=== PATIENT | female | born 1975 | race Caucasian/White ===

== ENCOUNTER 2017-04-08 07:35 | Outpatient (CLI) | payer OTHER ==
--- NOTE | 2017-04-08 10:19 | MRI ---
EXAM: BRAIN MRI WITH AND WITHOUT CONTRAST: COMPARISON: 05/31/16. HISTORY: Elapsing and remitting multiple sclerosis. TECHNIQUE: Brain MRI is performed with and without intravenous Gadolinium administration. Multisequential, mult iplanar imaging is performed. FINDINGS: No hemorrhage on the axial gradient echo sequence. No parenchymal mass, mass effect, or midline shift. Brain volume, age appropriate. Cortical colón-white matter differentiation is preserved. Ventricles and sulci are patent and symmetric. Central arterial flow voids are maintained. Absent restricted diffusion. Stable T2 and FLAIR white matter hyperintensities. Adequate aeration of the sinuses and mastoid air cells. No pathologic enhancement of the brain parenchyma. Incidental asymmetric prominence and associated enhancement of the right inferior and middle turbinat es. Correlate for possible infection/inflammation. Nonemergent direct visualization if clinically w arranted. IMPRESSION: 1. Stable white matter hyperintensities. No evidence of associated restricted diffusion or enhancem ent to suggest active demyelination. 2. Asymmetric enhancement and prominence of the right nasal cavity as above. POS: [facility]
--- NOTE | 2017-04-08 10:37 | MRI ---
CERVICAL SPINE MRI WITH AND WITHOUT CONTRAST: Date: 04-08-17 Comparison: 03-27-16 History: Multiple sclerosis. Technique: Multiplanar, multisequence MR imaging of the cervical spine is provided with and without c ontrast. FINDINGS: Mild mucosal thickening involving bilateral maxillary sinuses. There is no focal area of signal abnormality on the STIR imaging to suggest focal osseous marrow robbie ma. No anterolisthesis or retrolisthesis is seen within the cervical spine. There is no prevertebral soft tissue abnormality seen. The axial T2 weighted imaging is somewhat limited on the basis of patient motion artifact. C2-3: Intervertebral disc height and signal intensity is within normal limits. No significant central canal or neural foraminal stenosis. C3-4: There is disc desiccation, mild disc space narrowing and mild disc bulge. No associated central canal stenosis. Small left foraminal/left paracentral disc protrusion noted with mild left neural fo raminal stenosis. No significant central canal or right neural foraminal stenosis. C4-5: Minimal disc bulge with no central canal or neural foraminal stenosis. C5-6: Minimal disc bulge. No significant central canal or neural foraminal stenosis. C6-7: Mild disc bulge with no central canal stenosis. No significant neural foraminal stenosis. C7-T1: No central canal or neural foraminal stenosis. There is no focal area of signal abnormality identified within the cervical cord on the T2 weighted i maging. The post contrast imaging demonstrates no abnormal enhancement involving the imaged osseous structure s, the intervertebral disc, or the contents of the thecal sac. IMPRESSION: 1. Degenerative change within the cervical spine. 2. No cord signal abnormality to suggest active demyelination within the cervical cord. POS: [facility]
== END 2017-04-08 07:36 | disposition home or self-care (01) ==
LOC: MRI 07:35
PROVIDERS: ATTEND Psychiatry & Neurology Neurology
DX: G35 Multiple sclerosis (principal); M47.812 Spondylosis without myelopathy or radiculopathy, cervical region
CPT/HCPCS: 70553; 72156

== ENCOUNTER 2017-06-03 12:10 | Outpatient (CLI) | payer OTHER | END 2017-06-03 12:11 | disposition home or self-care (01) | LOC: BICRAD 12:10 | PROVIDERS: ATTEND Internal Medicine Gastroenterology | DX: K59.00 Constipation, unspecified (principal); R10.9 Unspecified abdominal pain | CPT/HCPCS: 74019 ==

== ENCOUNTER 2017-07-13 07:06 | Outpatient (CLI) | payer OTHER ==
--- NOTE | 2017-07-13 15:05 | NM ---
GASTRIC EMPTYING STUDY: TECHNIQUE: The patient was given 2 mCi of Technetium sulfur colloid in eggs for oral emptying phase study. INDICATIONS: Abdominal distention. Abdominal pain. One hour: 27% emptying. Two hours: 55% emptying. Four hours: 88% emptying. T-1/2 at 4 hours: 106 minutes. POS: [facility]
== END 2017-07-13 07:07 | disposition home or self-care (01) ==
LOC: NM 07:06
PROVIDERS: ATTEND Internal Medicine Gastroenterology
DX: K59.00 Constipation, unspecified (principal); R10.10 Upper abdominal pain, unspecified; R14.0 Abdominal distension (gaseous)
CPT/HCPCS: 78264; A9541

== ENCOUNTER 2017-08-05 16:38 | Emergency (ER) | payer OTHER ==
[2017-08-05] MEDS ORDERED: Nitroglycerin 2% Ointment 1 INCH/1 GM Packet ONE (17:01)
[2017-08-05 17:05] LABS: #Eosinphils 0.4 thou/uL (0.0-0.7); #Lymphocytes 2.3 thou/uL (1.20-3.40); #Monocytes 0.6 thou/uL (0.11-0.59); #Neutrophils 5.8 thou/uL (1.40-6.50); %Basophils 0.5 % (0.0-1.0); %Lymphocytes 25.5 % (21.0-51.0); %Monocytes 6.7 % (0.0-10.0); %Neutrophils 63.5 % (42.0-75.0); Hemoglobin 13.3 g/dL (12.0-16.0); Mean Corpuscular HGB CONC 33.3 g/dL (32.0-36.0); Mean Corpuscular Hemoglobin 31.5 pg (27.0-31.0); Mean Corpuscular Volume 94.6 fl (81.0-99.0); Mean Platelet Volume 6.5 fL (7.4-10.4); Platelet Count 397 thou/uL (130-400); RBC Distribution Width 11.8 % (11.5-14.5); Red Blood Cell (RBC) Count 4.21 mill/uL (4.20-5.40); White Blood Cell (WBC) Count 9.1 thou/uL (4.8-10.8)
[2017-08-05 17:11] LABS: PTT 30.6 SEC (22.9-36.1); Prothrombin Time 13.2 SEC (12.0-14.7)
[2017-08-05 17:26] LABS: ALT (SGPT) 20 U/L (8-55); AST (SGOT) 27 U/L (5-34); Albumin 4.3 g/dL (3.5-5.0); Alkaline Phosphatase 111 U/L (40-150); Anion Gap 17 mmol/L (10-20); BUN (Urea Nitrogen) 10 mg/dL (7.0-18.7); Bilirubin, Total 0.5 mg/dL (0.2-1.2); CK (CPK) 109 U/L (29-168); Calc. Creatinine Clearance 0 mL/min (70-130); Calcium 9.6 mg/dL (7.8-10.44); Carbon Dioxide 22 mmol/L (22-29); Chloride 103 mmol/L (98-107); Estimated GFR-MDRD Greater than 90; Globulin 3.3 g/dL (2.4-3.5); Glucose 139 mg/dL (70-105); Protein, Total 7.6 g/dL (6.0-8.3); Sodium 138 mmol/L (136-145)
[2017-08-05 17:34] LABS: Troponin I Less than 0.010 ng/mL (< 0.028)
--- NOTE | 2017-08-05 18:51 | RAD ---
RADIOGRAPH CHEST 1 VIEW: 08/05/17 HISTORY: 42-year-old female with acute chest pain and tachycardia. FINDINGS: There are no air space densities, pulmonary edema, pneumothorax, or cardiomegaly. The lateral costop hrenic angles are sharp. IMPRESSION: No acute cardiopulmonary findings. [place] [] POS: [facility]
[2017-08-05] MEDS ORDERED: HYDROcodone/Acetaminophen 5/325 mg Tablet ONE (19:46)
== END 2017-08-05 21:20 | disposition home or self-care (01) ==
LOC: ERS 16:38
DX: R07.9 Chest pain, unspecified (principal); E78.5 Hyperlipidemia, unspecified; G47.30 Sleep apnea, unspecified; G43.909 Migraine, unspecified, not intractable, without status migrainosus; E11.9 Type 2 diabetes mellitus without complications; K21.9 Gastro-esophageal reflux disease without esophagitis; J45.909 Unspecified asthma, uncomplicated; F41.9 Anxiety disorder, unspecified; F32.9 Major depressive disorder, single episode, unspecified; Z79.899 Other long term (current) drug therapy; Z79.84 Long term (current) use of oral hypoglycemic drugs
CPT/HCPCS: 36415; 71045; 80053; 82550; 82553; 84484; 85025; 85610; 85730; 93005

== ENCOUNTER 2017-12-02 09:28 | Outpatient (CLI) | payer OTHER ==
--- NOTE | 2017-12-02 16:11 | MRI ---
MRI OF THE RIGHT WRIST 12/02/17 PROVIDED CLINICAL HISTORY: Right wrist pain. FINDINGS: The dorsal extensor and volar flexor tendons demonstrate an intact MR appearance. Regional marrow and muscular signal appear normal. There is greater than physiologic fluid present wi thin the distal radioulnar joint. The amounts of fluid within the radiocarpal and mid carpal joints a ppear physiologic. No regional joint effusion is evident. Evaluation of the intrinsic wrist ligaments and TFC complexes limited in the absence of intra-articul ar contrast and given the degree of patient motion on the coronal fluid sensitive sequence. However, no normal appearing TFC articular disc is seen overlying the radial aspects of the ulna, compatible w ith maceration or large central tear. The dorsal and volar radioulnar ligaments appear intact. No donna ss evidence for scapholunate or lunotriquetral ligamentous tear. Alignment appears anatomic. The courses of regional major neurovascular structures appear unremarkabl e. IMPRESSION: Findings compatible with maceration/large central perforation involving the radial aspects of the TFC disc. Associated greater than physiologic distal radial ulnar joint fluid. POS: [facility]
== END 2017-12-02 09:29 | disposition home or self-care (01) ==
LOC: SCSMRI 09:28
PROVIDERS: ATTEND Orthopaedic Surgery Hand Surgery
DX: S63.591A Other specified sprain of right wrist, initial encounter (principal)

== ENCOUNTER 2017-12-28 10:06 | Outpatient (CLI) | payer OTHER ==
[2017-12-28 11:20] LABS: #Basophils 0.1 thou/uL (0.0-0.2); #Eosinphils 0.3 thou/uL (0.0-0.7); #Monocytes 0.6 thou/uL (0.11-0.59); #Neutrophils 4.8 thou/uL (1.40-6.50); %Eosinophils 4.1 % (0.0-10.0); %Lymphocytes 25.6 % (21.0-51.0); %Monocytes 7.5 % (0.0-10.0); %Neutrophils 61.9 % (42.0-75.0); Hemoglobin 13.7 g/dL (12.0-16.0); Mean Corpuscular HGB CONC 33.6 g/dL (32.0-36.0); Mean Corpuscular Hemoglobin 32.4 pg (27.0-31.0); Mean Corpuscular Volume 96.3 fL (78.0-98.0); Mean Platelet Volume 6.6 fL (7.4-10.4); Platelet Count 360 thou/uL (130-400); RBC Distribution Width 12.2 % (11.5-14.5); Red Blood Cell (RBC) Count 4.25 mill/uL (4.20-5.40); White Blood Cell (WBC) Count 7.7 thou/uL (4.8-10.8)
[2017-12-28 11:39] LABS: Anion Gap 12 mmol/L (10-20); BUN (Urea Nitrogen) 12 mg/dL (7.0-18.7); Calc. Creatinine Clearance 0 mL/min (70-130); Calcium 9.6 mg/dL (7.8-10.44); Carbon Dioxide 24 mmol/L (22-29); Chloride 102 mmol/L (98-107); Estimated GFR-MDRD 82; Glucose 122 mg/dL (70-105); Potassium 4.3 mmol/L (3.5-5.1); Sodium 134 mmol/L (136-145)
== END 2017-12-28 10:07 | disposition home or self-care (01) ==
LOC: LABBT 10:06
PROVIDERS: ATTEND Orthopaedic Surgery Hand Surgery
DX: Z01.812 Encounter for preprocedural laboratory examination (principal); S54.21XA Injury of radial nerve at forearm level, right arm, initial encounter
CPT/HCPCS: 80048; 85025

== ENCOUNTER 2018-01-01 08:50 | Day surgery (SDC) | payer OTHER ==
[2017-12-28 10:24] VITALS: BMI 32.1
[2018-01-01] MEDS ORDERED: Ropivacaine 0.2% HCl/PF 20 ML ONE (09:39)
[2018-01-01] MEDS ORDERED: Midazolam HCl 2 mg/2 ml Vial ONE ×2 (09:39→17:28)
[2018-01-01] MEDS ORDERED: Fentanyl 100 MCG/2 ML VIAL ONE ×2 (09:39→15:15)
[2018-01-01] MEDS ORDERED: Fentanyl 100 MCG/2 ML VIAL IV PRN (10:14)
[2018-01-01] MEDS ORDERED: Ropivacaine HCl/PF 1,100 MG in Sodium Chloride 0.9% 440 ML NERVE BLCK SCH (10:14)
[2018-01-01] MEDS ORDERED: Zolpidem Tartrate 5 MG TAB PO PRN (10:14)
[2018-01-01] MEDS ORDERED: Ondansetron HCl/PF 4 MG/2 ML Vial IVP PRN (10:14)
[2018-01-01] MEDS ORDERED: traMADol HCl 50 MG TAB PO PRN ×2 (10:14)
[2018-01-01] MEDS ORDERED: HYDROcodone/Acetaminophen 5/325 mg Tablet PO PRN ×2 (10:14)
[2018-01-01] MEDS ORDERED: Promethazine HCl 25 MG/ML VIAL IM PRN (10:14)
[2018-01-01] MEDS ORDERED: HYDROcodone/Acetaminophen 5/325 mg Tablet ONE (12:46)
[2018-01-01] MEDS ORDERED: Ropivacaine 0.5% HCl/PF (150 MG/30 ML VIAL) ONE (13:12)
[2018-01-01] MEDS ORDERED: PROPOFOL 200 MG/20 ML VIAL ONE (13:23)
[2018-01-01] MEDS ORDERED: Ondansetron HCl/PF 4 MG/2 ML Vial ONE (13:23)
[2018-01-01] MEDS ORDERED: Lidocaine 1% PF 5 ML VIAL ONE (13:23)
[2018-01-01] MEDS ORDERED: Glycopyrrolate 0.2 MG/ML 5 ML SYRINGE ONE (13:23)
[2018-01-01] MEDS ORDERED: Dexamethasone 20 MG/5 ML VIAL ONE (13:23)
[2018-01-01] MEDS ORDERED: Labetalol 100 MG/20 ML MDV ONE (13:23)
[2018-01-01] MEDS ORDERED: Sodium Chloride 0.9% 0 ML ONE (15:07)
[2018-01-01] MEDS ORDERED: Bupivacaine PF 0.5% 30 ML VIAL ONE (15:07)
[2018-01-01] MEDS ORDERED: Bacitracin Zinc Ointment 30 gm TUBE ONE (15:07)
[2018-01-01] MEDS ORDERED: Betamet Acet/Betamet Na Ph 30 MG/5 ML VIAL ONE (15:07)
[2018-01-01] MEDS ORDERED: Clindamycin/D5W 600 mg/50 ml Premix Bag ONE (15:21)
[2018-01-01] MEDS ORDERED: Bupivacaine 0.25% HCL 30 ML VIAL ONE (17:11)
[2018-01-01] MEDS ORDERED: Ketorolac Tromethamine 30 MG/ML VIAL ONE (17:22)
--- NOTE | 2018-01-04 13:09 | OP ---
DATE OF PROCEDURE: 01/01/2018 PREOPERATIVE DIAGNOSIS: Superficial radial nerve compression at two sites, one proximal under brachi gautam and two at the intersection site first and second dorsal compartment. PROCEDURE PERFORMED: 1. Superficial radial nerve release separate incision forearm underneath the brachioradialis with br achioradialis tenotomy. 2. Superficial radial nerve release at the wrist with second dorsal compartment release. TOURNIQUET TIME: 22 minutes. FINDINGS: Compression of the brachioradialis greater than that at the second dorsal compartment. INDICATION: Failed conservative treatment except for 7 to 10-day relief with injections. DESCRIPTION OF PROCEDURE: After successful general endotracheal anesthesia, the limb was prepped and draped. The patient had the limb exsanguinated, tourniquet inflated to 250 mmHg pressure. The adin ent had first a jennifer-incisional blocks with two incision outlined, both zigzag, one in the brachiorad ialis interval with the extensor and the second at the second dorsal compartment site. Incision was first made from the base of the first dorsal compartment towards the second dorsal compartment in zig zag fashion. We lifted up the area and identified the superficial radial nerves. No compression. T he first dorsal compartment with minimal amount of fascial compression between the skin and the secon d dorsal compartment and over the second dorsal compartment as well. We irrigated the area. Then, w e identified the line of the nerve, made a proximal incision over the brachial radialis palpate in th e brachial radialis interval with the common extensors and followed this back until we found the supe rficial radial nerve, emerging out from under the brachioradialis. We then performed a tenotomy, rel eased the fascial bands including resecting a 4 mm wide x 3 cm long area of the brachioradialis tendo n to take pressure off the nerve here. It was flattened by about 50% with mild stiffness. We placed Celestone and decided 3 mL, gently closed on the subcutaneous tissue after releasing the tourniquet and obtained hemostasis. The patient left the operating room with soft dressing, digits pink with no evidence of anesthetic or operative complication.
== END 2018-01-01 19:15 | disposition home or self-care (01) ==
LOC: SDC 08:50
PROVIDERS: ATTEND Orthopaedic Surgery Hand Surgery
PROC: 01N60ZZ Release Radial Nerve, Open Approach (ICD-10-PCS; principal; 2018-01-01)
DX: G56.31 Lesion of radial nerve, right upper limb (principal); F32.9 Major depressive disorder, single episode, unspecified; F41.9 Anxiety disorder, unspecified; J45.909 Unspecified asthma, uncomplicated; E11.9 Type 2 diabetes mellitus without complications; E78.00 Pure hypercholesterolemia, unspecified; G35 Multiple sclerosis; K21.9 Gastro-esophageal reflux disease without esophagitis; Z87.891 Personal history of nicotine dependence; Z79.84 Long term (current) use of oral hypoglycemic drugs; Z79.899 Other long term (current) drug therapy; Z88.0 Allergy status to penicillin; Z88.1 Allergy status to other antibiotic agents; Z88.5 Allergy status to narcotic agent; Z88.8 Allergy status to other drugs, medicaments and biological substances; Z91.011 Allergy to milk products; Z91.048 Other nonmedicinal substance allergy status
CPT/HCPCS: 96374; A4216; J0702; J1100; J1885; J2001; J2250; J2405; J2704; J2795; J3010; J3490; J7050; S0020

== ENCOUNTER 2018-02-18 11:58 | Outpatient (CLI) | payer OTHER ==
[2018-02-18 14:22] LABS: Hemoglobin 12.1 g/dL (12.0-16.0); Mean Corpuscular HGB CONC 33.7 g/dL (32.0-36.0); Mean Corpuscular Hemoglobin 32.7 pg (27.0-31.0); Mean Corpuscular Volume 97.2 fL (78.0-98.0); Mean Platelet Volume 7.2 fL (7.4-10.4); Platelet Count 314 thou/uL (130-400); RBC Distribution Width 11.5 % (11.5-14.5); Red Blood Cell (RBC) Count 3.68 mill/uL (4.20-5.40)
[2018-02-18 14:27] LABS: INR-International Normal Ratio 0.9; PTT 27.1 SEC (22.9-36.1); Prothrombin Time 12.6 SEC (12.0-14.7)
[2018-02-18 14:45] LABS: Anion Gap 13 mmol/L (10-20); BUN (Urea Nitrogen) 12 mg/dL (7.0-18.7); Calc. Creatinine Clearance 0 mL/min (70-130); Calcium 9.4 mg/dL (7.8-10.44); Carbon Dioxide 23 mmol/L (22-29); Chloride 105 mmol/L (98-107); Estimated GFR-MDRD Greater than 90; Glucose 112 mg/dL (70-105); Potassium 3.8 mmol/L (3.5-5.1); Sodium 137 mmol/L (136-145)
--- NOTE | 2018-02-21 20:55 | EKG ---
Test Reason : Blood Pressure : / mmHG Vent. Rate : 082 BPM Atrial Rate : 082 BPM P-R Int : 124 ms QRS Dur : 084 ms QT Int : 354 ms P-R-T Axes : 066 063 086 degrees QTc Int : 413 ms Poor data quality, interpretation may be adversely affected Normal sinus rhythm Nonspecific ST and T wave abnormality Abnormal ECG When compared with ECG of 05-AUG-2017 16:44, Nonspecific T wave abnormality, improved in Inferior leads Confirmed by Herman TELLEZ ([id number]) on 02/21/2018 8:55:17 PM Referred By: KARLA Confirmed By:Herman TELLEZ
== END 2018-02-18 11:59 | disposition home or self-care (01) ==
LOC: LABBT 11:58
PROVIDERS: ATTEND Specialist
DX: Z01.818 Encounter for other preprocedural examination (principal); R00.0 Tachycardia, unspecified
CPT/HCPCS: 80048; 85027; 85610; 85730; 93005; 93010

== ENCOUNTER 2018-02-22 05:47 | Day surgery (SDC) | payer OTHER ==
[2018-02-18 12:16] VITALS: BMI 32.8
[2018-02-22] MEDS ORDERED: Lidocaine 1% (PF) 30 ML VIAL ONE (07:07)
[2018-02-22] MEDS ORDERED: Heparin 10,000 UNITS/1 ML VIAL ONE (07:28)
[2018-02-22] MEDS ORDERED: SUGAMMADEX SODIUM 200 MG/2 ML VIAL ONE (07:31)
[2018-02-22] MEDS ORDERED: SUGAMMADEX SODIUM 500 MG/5 ML VIAL ONE (07:31)
[2018-02-22] MEDS ORDERED: Propofol 500 MG/50 ML VIAL ONE ×2 (07:33→08:52)
[2018-02-22] MEDS ORDERED: Midazolam HCl 2 mg/2 ml Vial ONE (07:34)
[2018-02-22] MEDS ORDERED: Isoproterenol 0.2 MG/1 ML AMP ONE (08:58)
--- NOTE | 2018-02-22 10:13 | OP ---
DATE OF PROCEDURE: 02/22/2018 PROCEDURE: Comprehensive EP study with induction attempt. PREOPERATIVE DIAGNOSIS: Palpitations. PROCEDURE DETAILS: The patient came to the EP lab in the postabsorptive state. Informed consent was obtained. A timeout was called. The patient was sedated by a member of the Anesthesia staff. Once the patient was adequately sedated, the left and right femoral regions were prepped and draped in th e usual sterile fashion. Using a modified Seldinger technique and with ultrasound guidance, access w as obtained x3 in the right femoral vein. Three 6 Montserratian sheaths were advanced through these sheaths , quadripolar catheter was placed in the high right atrium, an octapolar catheter was placed along th e His bundle and a quadripolar catheter was placed in the right ventricle. Baseline intervals were as follows. Cycle length was 568, NV intervals 123. QRS was 69, QT 340, AH 46 and HV 40. AV Wenckebach occurred at 280 milliseconds. VA conduction was present and was decreme ntal. VA Wenckebach occurred at 310 milliseconds. VERP occurred at [address] cycle length at a pauline ature of 190 milliseconds. VA ERP was less than 450 drive at 190 milliseconds premature. AV node AE RP occurred at 500 milliseconds and 220 premature, AV node ERP occurred at less than 500 milliseconds at 2:20 premature no jump was noted. VA conduction appeared to be concentric due to a retrograde Hi s noted. After baseline EP study a bolus of isoproterenol was given. Heart rate accelerated and pre mature beats, as well as drive pacing down to approximately 200 milliseconds was delivered. No supra ventricular tachycardias could be induced whatsoever. Based on this, the patient was awoken, cathete rs were removed and hemostasis was obtained with manual pressure. CONCLUSIONS: 1. EP study negative for supraventricular tachycardia. 2. Normal AV VA intervals and normal conduction system. RECOMMENDATIONS: The patient will continue current medications, will follow up with Dr. Borden.
[2018-02-22] MEDS ORDERED: Lidocaine 1% PF 5 ML VIAL ONE (10:36)
[2018-02-22] MEDS ORDERED: PROPOFOL 200 MG/20 ML VIAL ONE (10:36)
[2018-02-22] MEDS ORDERED: Fentanyl 100 MCG/2 ML VIAL ONE (11:30)
== END 2018-02-22 14:03 | disposition home or self-care (01) ==
LOC: CCL 05:47
PROVIDERS: ATTEND Specialist
PROC: 4A023FZ Measurement of Cardiac Rhythm, Percutaneous Approach (ICD-10-PCS; principal; 2018-02-22)
PROC: 4A0234Z Measurement of Cardiac Electrical Activity, Percutaneous Approach (ICD-10-PCS; principal; 2018-02-22)
DX: R00.0 Tachycardia, unspecified (principal); G35 Multiple sclerosis; Z88.5 Allergy status to narcotic agent; Z88.0 Allergy status to penicillin; Z88.6 Allergy status to analgesic agent; Z79.899 Other long term (current) drug therapy
CPT/HCPCS: 36416; 76942; 93621; 93623; 96374; C1730; C1769; J1644; J2001; J2250; J2704; J3010

== ENCOUNTER 2018-04-12 10:16 | Outpatient (CLI) | payer OTHER ==
--- NOTE | 2018-04-12 12:28 | RAD ---
KUB: HISTORY: Chronic constipation. FINDINGS: The bowel gas pattern is nonobstructed with a mild amount of stool throughout the colon. Postop chol ecystectomy changes are seen. There are some mild arthritic changes of both hips. IMPRESSION: No acute findings. POS: [facility]
== END 2018-04-12 10:17 | disposition home or self-care (01) ==
LOC: BICRAD 10:16
PROVIDERS: ATTEND Physician Assistant Medical
DX: K59.09 Other constipation (principal)
CPT/HCPCS: 74018

== ENCOUNTER 2018-04-12 11:05 | Emergency (ER) | payer OTHER ==
[2018-04-12] MEDS ORDERED: Acetaminophen 500 MG TAB ONE (11:23)
--- NOTE | 2018-04-12 11:50 | RAD ---
LEFT ANKLE THREE VIEWS: History: Pain. Twisting injury. Comparison: 01-15-17 FINDINGS: Joint spaces are preserved. No fracture. No cortical irregularity or periosteal reaction. No signific ant soft tissue swelling. IMPRESSION: No post-traumatic change. POS: [facility]
== END 2018-04-12 12:10 | disposition home or self-care (01) ==
LOC: ERS 11:05
DX: S93.402A Sprain of unspecified ligament of left ankle, initial encounter (principal); E11.9 Type 2 diabetes mellitus without complications; K21.9 Gastro-esophageal reflux disease without esophagitis; G40.909 Epilepsy, unspecified, not intractable, without status epilepticus; G43.909 Migraine, unspecified, not intractable, without status migrainosus; G47.30 Sleep apnea, unspecified; F41.9 Anxiety disorder, unspecified; F32.9 Major depressive disorder, single episode, unspecified; F43.10 Post-traumatic stress disorder, unspecified; X50.1XXA Overexertion from prolonged static or awkward postures, initial encounter
CPT/HCPCS: 74018

== ENCOUNTER 2018-04-14 08:41 | Outpatient (CLI) | payer OTHER ==
--- NOTE | 2018-04-14 09:34 | RAD ---
COLONIC MOTILITY RADIOGRAPH TWO VIEWS: Indication: Day 3 Sitz marker study for history of chronic constipation. FINDINGS: Sitz markers have progressed to the confines of the distal transverse and descending colon. There are 24 radiopaque markers visualized. IMPRESSION: Passage of radiopaque colonic markers to the level of the distal transverse and descending colon. POS: [facility]
== END 2018-04-14 08:42 | disposition home or self-care (01) ==
LOC: RAD 08:41
PROVIDERS: ATTEND Physician Assistant Medical
DX: K59.09 Other constipation (principal)
CPT/HCPCS: 74018

== ENCOUNTER 2018-04-16 08:42 | Outpatient (CLI) | payer OTHER ==
--- NOTE | 2018-04-16 10:56 | RAD ---
COLONIC MOTILITY STUDY: HISTORY: Evaluation of colonic motility, constipation. FINDINGS: This is day 5 of a 6 marker study. The residual markers are now either within the descending or sigm oid colon. There are 8 markers remaining at this time. IMPRESSION: Day 5 with 8 markers remaining. This would be defined as an abnormal study. A moderate amount of st ool is noted throughout the colon. POS: [facility]
== END 2018-04-16 08:43 | disposition home or self-care (01) ==
LOC: RAD 08:42
PROVIDERS: ATTEND Physician Assistant Medical
DX: K59.09 Other constipation (principal)
CPT/HCPCS: 74018

== ENCOUNTER 2018-04-19 08:38 | Outpatient (CLI) | payer OTHER ==
--- NOTE | 2018-04-19 10:24 | RAD ---
COLONIC MOTILITY STUDY/SITZ MARKER STUDY: Comparison: 04-16-18 FINDINGS: Anterior view of the abdomen shows a nonspecific, nonobstructed bowel gas pattern. No remaining Sitz markers are seen in the abdomen. Cholecystectomy clips are present. This is day 8 of the study. IMPRESSION: No residual Sitz markers. POS: [facility]
== END 2018-04-19 08:39 | disposition home or self-care (01) ==
LOC: RAD 08:38
PROVIDERS: ATTEND Physician Assistant Medical
DX: K59.09 Other constipation (principal)
CPT/HCPCS: 74018

== ENCOUNTER 2018-04-20 16:01 | Inpatient (IN) | payer OTHER ==
[2018-04-20] MEDS ORDERED: methylPREDNISolone Sod Succ/PF 125 MG/2 ML VIAL ONE (16:12)
[2018-04-20 16:27] LABS: Lactate 5.68 mmol/L (0.50-2.20)
[2018-04-20 16:37] LABS: #Basophils 0.1 thou/uL (0.0-0.2); #Eosinphils 0.3 thou/uL (0.0-0.7); #Lymphocytes 2.5 thou/uL (1.20-3.40); #Monocytes 0.9 thou/uL (0.11-0.59); #Neutrophils 4.7 thou/uL (1.40-6.50); %Basophils 1.2 % (0.0-1.0); %Eosinophils 3.3 % (0.0-10.0); %Lymphocytes 29.9 % (21.0-51.0); %Monocytes 10.1 % (0.0-10.0); %Neutrophils 55.5 % (42.0-75.0); Hemoglobin 12.5 g/dL (12.0-16.0); Mean Corpuscular HGB CONC 33.8 g/dL (32.0-36.0); Mean Corpuscular Hemoglobin 32.3 pg (27.0-31.0); Mean Corpuscular Volume 95.6 fL (78.0-98.0); Mean Platelet Volume 7.2 fL (7.4-10.4); Platelet Count 325 thou/uL (130-400); RBC Distribution Width 11.9 % (11.5-14.5); Red Blood Cell (RBC) Count 3.88 mill/uL (4.20-5.40); White Blood Cell (WBC) Count 8.5 thou/uL (4.8-10.8)
[2018-04-20 16:38] LABS: Actual Bicarbonate (HCO3a) 20.8 mEq/L (22-28); Analyzer IN Cardio ER; Base Excess (BEa) -3.4 mEq/L (-2.0 to +3.0); CO2 Tension 34.7 mmHg (35.0-45.0); Calcium, Ionized 1.06 mmol/L (1.12-1.30); Carboxyhemoglobin (COHb) 0.3 gm% (0.0-3.0); Hemoglobin (Hb) 12.4 g/dL (12.0-16.0); O2 Tension (PaO2) 67.1 mmHg (80.0-100.0); Potassium - ABG Lab 3.05 mmol/L (3.70-5.30)
[2018-04-20 16:40] LABS: ALV-art Gradient 89.165 (0-20); Puncture Site RRA
[2018-04-20 17:02] LABS: ALT (SGPT) 25 U/L (8-55); AST (SGOT) 41 U/L (5-34); Albumin 4.2 g/dL (3.5-5.0); Alkaline Phosphatase 125 U/L (40-150); Anion Gap 19 mmol/L (10-20); BUN (Urea Nitrogen) 6 mg/dL (7.0-18.7); Bilirubin, Total 0.4 mg/dL (0.2-1.2); Calc. Creatinine Clearance 0 mL/min (70-130); Calcium 9.3 mg/dL (7.8-10.44); Carbon Dioxide 19 mmol/L (22-29); Chloride 101 mmol/L (98-107); Estimated GFR-MDRD 89; Globulin 3.5 g/dL (2.4-3.5); Glucose 133 mg/dL (70-105); Potassium 3.2 mmol/L (3.5-5.1); Protein, Total 7.7 g/dL (6.0-8.3); Sodium 136 mmol/L (136-145)
--- NOTE | 2018-04-20 17:15 | RAD ---
CHEST ONE VIEW: 04/20/18 COMPARISON: 08/05/17 HISTORY: Cough. Shortness of breath. FINDINGS: Portable upright chest demonstrates a normal cardiac silhouette. The pulmonary vessels and hilum are normal. Costophrenic angles are clear. No consolidation or mass. No pneumothorax or osseous abnormali ties. IMPRESSION: No acute cardiopulmonary process. POS: [facility]
[2018-04-20 17:52] LABS: Bilirubin Negative (Negative); Blood, Urine Negative (Negative); Clarity CLEAR (Clear); Glucose, Urine (Dipstick) Negative (Negative); Leukocyte Negative (Negative); Nitrite Negative (Negative); Protein, Urine (Dipstick) Negative (Neg-Trace); Specific Gravity, Urine 1.003 (1.002-1.036); Urobilinogen 0.2 mg/dL (0.2-1.0)
--- NOTE | 2018-04-20 19:02 | PDOC.FPRHP ---
- History of Present Illness Chief Complaint: SOB History of Present Illness: Ms. Oglesby presents to the ED for SOB today and an elevated temperature with EMS Her shortness of breath started yesterday, She has been using her home nebs with little relief. She also reports a nonproductive cough. reported fever at home as high as 101. She has a history of asthma, that is normally well controlled with pro-air. She recently started metformin for DMII. She denies nausea, vomiting, body aches, or chills. 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 no anticoagulation ED Course: elevated lactic acid. CBC, CMP, Trop, CXR: wnl steroids, 30ml/kg NS, levaquin, duonebsx3 with EMS - Allergies/Adverse Reactions Allergies Allergy/AdvReac Type Severity Reaction Status Date / Time aspirin Allergy Intermediate PASSED OUT Verified 04/20/18 22:53 codeine Allergy Intermediate VIOLENT Verified 04/20/18 22:53 BEHAVIOR Penicillins Allergy Intermediate Rash Verified 04/20/18 22:53 adhesive Allergy Verified 04/20/18 22:53 dextrose 5 % in water Allergy regalado's Verified 04/20/18 22:53 [From Zyvox] palsey linezolid [From Zyvox] Allergy regalado's Verified 04/20/18 22:53 palsey milk Allergy Verified 04/20/18 22:53 phenytoin sodium Allergy Verified 04/20/18 22:53 [From Dilantin] phenytoin sodium extended Allergy Verified 04/20/18 22:53 [From Dilantin] metronidazole [From Flagyl] AdvReac STOMACH Verified 04/20/18 22:53 UPSET promethazine HCl AdvReac UPSET Verified 04/20/18 22:53 [From Phenergan] STOMACH - Home Medications Medication Instructions Recorded Confirmed Type Linaclotide [Linzess] 290 mcg PO DAILY-AC 06/24/16 04/20/18 History Albuterol Sulfate [Proair HFA] 2 puff INH Q6HR PRN 09/05/16 04/20/18 History metFORMIN HCl [Glucophage] 1,000 mg PO BID-WM #60 tablet 09/15/16 04/20/18 Rx DULoxetine HCl [Duloxetine HCl] 120 mg PO HS 01/26/17 04/20/18 History levETIRAcetam [Keppra] 500 mg PO BID #60 tab 01/26/17 04/20/18 Rx Atenolol [Tenormin] 25 tab PO HS 12/28/17 04/20/18 History Atorvastatin Calcium [Lipitor] 80 mg PO HS 12/28/17 04/20/18 History Atenolol 50 mg PO QAM 04/20/18 04/20/18 History Fesoterodine Fumarate [Toviaz] 4 mg PO DAILY 04/20/18 04/20/18 History Ipratropium 0.06% Nasal Inhale 2 spray EA NARE TID 04/20/18 04/20/18 History [Atrovent 0.06% Nasal Inhaler] Metoprolol Succinate 50 mg PO DAILY 04/20/18 04/20/18 History Vitamin E 400 unit PO DAILY 04/20/18 04/20/18 History - History PMHx: Afib, epilepsy, MS, DMII, GERD, urge incontinence, IBS PSHx: appy, choley, CS, hysterectomy, ortho FHx:NC Social: non smoker - Review of Systems General: denies: fever/chills, weight/appetite/sleep changes Eyes: denies: vision changes ENT: denies: nasal congestion, rhinorrhea Respiratory: reports: cough. denies: congestion, shortness of breath Cardiovascular: denies: chest pain, edema Gastrointestinal: reports: diarrhea, constipation. denies: nausea, vomiting, abdominal pain Genitourinary: denies: dysuria Skin: denies: rashes, lesions Musculoskeletal: denies: pain, tenderness Neurological: denies: numbness, syncope - Vital signs BP: 126/74 HR: 124 RR: 20 Tmax: 101.8 Pox: 96% on RA Wt: 81.65kg - Physical Exam Constitutional: NAD, awake, alert and oriented HEENT: normocephalic and atraumatic, grossly normal vision, grossly normal hearing Neck: supple, trachea midline Chest: no-tender to palpation Heart: normal S1/S2, no murmurs/rubs/gallops, other (irregularly irregular, tachycardia) Lungs: no respiratory distress, good air movement, no wheezing Abdomen: soft, non-tender Musculoskeletal: normal structure, ROM grossly normal Neurological: no focal deficit Skin: no rash/lesions, good turgor Heme/Lymphatic: no unusual bruising or bleeding Psychiatric: normal mood and affect FMR H&P: Results - Labs Result Diagrams: 04/21/18 04:31 04/21/18 04:31 Lab results: WBC 8.5 thou/uL (4.8-10.8) 04/20/18 16:18 Hgb 12.5 g/dL (12.0-16.0) 04/20/18 16:18 Hct 37.1 % (36.0-47.0) 04/20/18 16:18 MCV 95.6 fL (78.0-98.0) 04/20/18 16:18 Plt Count 325 thou/uL (130-400) 04/20/18 16:18 Neutrophils % 55.5 % (42.0-75.0) 04/20/18 16:18 ABG pH 7.40 (7.35-7.45) 04/20/18 16:35 ABG pCO2 34.7 mmHg (35.0-45.0) L 04/20/18 16:35 ABG pO2 67.1 mmHg (80.0-100.0) L 04/20/18 16:35 Sodium 136 mmol/L (136-145) 04/20/18 16:18 Potassium 3.2 mmol/L (3.5-5.1) L 04/20/18 16:18 Chloride 101 mmol/L (98-107) 04/20/18 16:18 Carbon Dioxide 19 mmol/L (22-29) L 04/20/18 16:18 BUN 6 mg/dL (7.0-18.7) L 04/20/18 16:18 Creatinine 0.71 mg/dL (0.6-1.1) 04/20/18 16:18 Glucose 133 mg/dL (70-105) H 04/20/18 16:18 Lactic Acid 6.0 mmol/L (0.5-2.2) H* 04/20/18 16:18 Calcium 9.3 mg/dL (7.8-10.44) 04/20/18 16:18 Total Bilirubin 0.4 mg/dL (0.2-1.2) 04/20/18 16:18 AST 41 U/L (5-34) H 04/20/18 16:18 ALT 25 U/L (8-55) 04/20/18 16:18 Alkaline Phosphatase 125 U/L (40-150) 04/20/18 16:18 Serum Total Protein 7.7 g/dL (6.0-8.3) 04/20/18 16:18 Albumin 4.2 g/dL (3.5-5.0) 04/20/18 16:18 Urine Ketones Negative mg/dL (Negative) 04/20/18 17:29 Urine Blood Negative (Negative) 04/20/18 17:29 Urine Nitrite Negative (Negative) 04/20/18 17:29 Ur Leukocyte Esterase Negative (Negative) 04/20/18 17:29 FMR H&P: A/P - Problem List (1) Viral URI with cough Current Visit: Yes Status: Acute Code(s): J06.9 - ACUTE UPPER RESPIRATORY INFECTION, UNSPECIFIED; B97.89 - OTH VIRAL AGENTS THE CAUSE OF DISEASES CLASSD ELSWHR (2) Lactic acid increased Current Visit: Yes Status: Acute Code(s): E87.2 - ACIDOSIS (3) Asthma Current Visit: No Status: Chronic Code(s): J45.909 - UNSPECIFIED ASTHMA, UNCOMPLICATED (4) DM type 2 (diabetes mellitus, type 2) Current Visit: No Status: Chronic Qualifiers: Diabetes mellitus halfway insulin use: without halfway use Diabetes mellitus complication status: without complication Qualified Code(s): E11.9 - Type 2 diabetes mellitus without complications (5) GERD (gastroesophageal reflux disease) Current Visit: No Status: Chronic Code(s): K21.9 - GASTRO-ESOPHAGEAL REFLUX DISEASE WITHOUT ESOPHAGITIS (6) Hyperlipidemia Current Visit: No Status: Chronic Code(s): E78.5 - HYPERLIPIDEMIA, UNSPECIFIED (7) Irritable bowel syndrome Current Visit: No Status: Chronic (8) Multiple sclerosis Current Visit: No Status: Chronic Code(s): G35 - MULTIPLE SCLEROSIS (9) Seizure disorder Current Visit: Yes Status: Acute Code(s): G40.909 - EPILEPSY, UNSP, NOT INTRACTABLE, WITHOUT STATUS EPILEPTICUS - Plan Viral URI with cough - WBC wnl, elevated temperature, CXR wnl, procal pending - adequate IVF in ED, encourage PO intake - rigoberto mcgregor q6hr prn - abx not indicated at this time Asthma - hx of, exacerbating URI symptoms - PO steroids x5 days - continue home proair DMII - recently began metformin, unknown control - hold metformin Elevated LA - possibly due to metformin, hold for now - cr. wnl, no wbc elevation, pulse elevated at baseline: unlikely sepsis - repeat in AM GERD - continue home meds Epilepsy - continue home meds HLD -continue home meds MS - aware, monitor Code: full ppx: lovenox Disposition/LOS: observation on telemetry, supportive care for viral URI FMR H&P: Upper Level - Pertinent history Pt is a 43 y/o F with MS, A-fib presenting via EMS for SOB for 2 days. Associated cough, fever Tmax 100.8. She states she feels better after the Duonebs given via EMS and she denies additional complaints. No sputum production. One sick contact over the weekend with chronic bronchitis. Did receive duonebs x3 on ambulance. On RA and 97% currently without discomfort other than cough. - Pertinent findings Physical Exam: GEN: NAD, CARDIO: RRR, No MRG LUNGS: CTAB, No wheezes, rales, ronchi NEURO: Alert and oriented x4, no focal deficits, strength and sensation preserved in all extremities. MSK: No LE edema - Plan Date/Time: 04/20/181857 Andrea Morrow, have evaluated this patient and agree with findings/plan as outlined by qa intern resident. Pertinent changes/additions are listed here. Assessment/Plan: 1. Acute Asthma Exacerbation: S/p duonebs x3 via EMS. Now w/o wheezing and 97% o on RA. Did receive steroids and will continue. O2 PRN and continuous pulse ox. This is possibly 2/2 to Viral URI or Acute bronchitis as she did have a fever with onset of sx yesterday. Check procal. Consider continuing abx if elevated. CXR WNL. 2. Tachycardia: Does have a hx/o A-Fib on Metoprolol. Now likely 2/2 DEYANIRA administration. Will continue to monitor with Telemetry. No chest pain. BP initially elvated, now WNL. 3. Lactic Acidosis: Unknown cause, but she did start Metformin 1 month ago, so we will discontinue and trend Lactic acid levels. pH 7.4. No definite source of infection or evidence of tissue ischemia. 4. DM: Hold Metformin. SSI 5. Multiple Sclerosis: No acute issues 6. A-Fib: Unknown why she is not on anticoagulation, but regularly follows up with her watch supervisor in [place]. Also has a loop recorder placed. DVTPPX: LMWH, DISPO: Anticipate discharge in 1-2d Attending Addendum - Attending Addendum Date/Time: 04/21/18 [id number] I personally evaluated the patient and discussed the management with Dr. springer at time of admission last night. I agree with the History, Examination, Assessment and Plan documented above with any addition or exceptions noted below.
[2018-04-20 20:18] LABS: Lactic Acid 4.6 mmol/L (0.5-2.2)
[2018-04-20] MEDS ORDERED: Acetaminophen 325 MG TAB PO PRN (21:05)
[2018-04-20 21:09] VITALS: BMI 34.2
[2018-04-20] MEDS ORDERED: HumaLOG 300 UNITS/3 ML VIAL SC PRN (21:55)
[2018-04-20] MEDS ORDERED: Dextrose 50% Abboject 50 ML SYRINGE SLOW IVP PRN (21:55)
[2018-04-20] MEDS ORDERED: Dextrose 5% in Water 1,000 ML IV PRN (21:55)
[2018-04-20] MEDS ORDERED: PROVENTIL INHALER 6.7 G (200 INHALATIONS) INH PRN (23:58)
[2018-04-21 05:02] LABS: #Lymphocytes 0.6 thou/uL (1.20-3.40); #Monocytes 0.2 thou/uL (0.11-0.59); #Neutrophils 8.9 thou/uL (1.40-6.50); %Eosinophils 0.1 % (0.0-10.0); %Lymphocytes 6.4 % (21.0-51.0); %Neutrophils 91.5 % (42.0-75.0); Hemoglobin 12.3 g/dL (12.0-16.0); Mean Corpuscular HGB CONC 33.4 g/dL (32.0-36.0); Mean Corpuscular Hemoglobin 32.2 pg (27.0-31.0); Mean Corpuscular Volume 96.3 fL (78.0-98.0); Platelet Count 331 thou/uL (130-400); Red Blood Cell (RBC) Count 3.82 mill/uL (4.20-5.40); White Blood Cell (WBC) Count 9.7 thou/uL (4.8-10.8)
[2018-04-21 05:26] LABS: ALT (SGPT) 26 U/L (8-55); AST (SGOT) 32 U/L (5-34); Albumin 3.9 g/dL (3.5-5.0); Alkaline Phosphatase 113 U/L (40-150); Anion Gap 18 mmol/L (10-20); BUN (Urea Nitrogen) 7 mg/dL (7.0-18.7); Bilirubin, Total 0.3 mg/dL (0.2-1.2); Calc. Creatinine Clearance 124 mL/min (70-130); Calcium 9.3 mg/dL (7.8-10.44); Carbon Dioxide 18 mmol/L (22-29); Chloride 105 mmol/L (98-107); Estimated GFR-MDRD 84; Globulin 3.5 g/dL (2.4-3.5); Glucose 241 mg/dL (70-105); Potassium 4.5 mmol/L (3.5-5.1); Protein, Total 7.4 g/dL (6.0-8.3); Sodium 136 mmol/L (136-145)
[2018-04-21 05:33] LABS: Lactic Acid 4.5 mmol/L (0.5-2.2)
--- NOTE | 2018-04-21 05:50 | PDOC.FM ---
- Subjective Subjective: Pt states she did well overnight. She denies fevers or chills. She states that her breathing is improved. She denies SOB, chest pain, or nausea/vomiting. - Objective MAR Reviewed: Yes Vital Signs & Weight: Vital Signs (12 hours) Temp Pulse Resp BP BP BP Pulse Ox 04/21/18 03:55 102 H 18 122/67 95 04/21/18 00:01 97.8 F 104 H 18 142/75 H 94 L 04/20/18 20:50 98.1 F 114 H 16 133/71 92 L Weight Weight 82.146 kg Result Diagrams: 04/21/18 04:31 04/21/18 04:31 <Matthew Monte - Last Filed: 04/21/18 06:53> - Objective Vital Signs & Weight: Vital Signs (12 hours) Temp Pulse Resp BP BP Pulse Ox 04/21/18 07:05 98.8 F 101 H 16 116/67 92 L 04/21/18 03:55 102 H 18 122/67 95 04/21/18 00:01 97.8 F 104 H 18 142/75 H 94 L Weight Weight 82.146 kg Result Diagrams: 04/21/18 04:31 04/21/18 04:31 <Sunday Villalobos - Last Filed: 04/21/18 10:08> Phys Exam - Physical Examination Constitutional: NAD HEENT: moist MMs Neck: supple Good air movement, mild wheezing, no respiratory distress Cardiovascular: RRR, no significant murmur, no rub Gastrointestinal: soft, non-tender, no distention, positive bowel sounds Musculoskeletal: no edema, pulses present Neurological: moves all 4 limbs Psychiatric: normal affect, A&O x 3 Skin: cap refill <2 seconds <Matthew Monte - Last Filed: 04/21/18 06:53> Dx/Plan (1) Lactic acid increased Code(s): E87.2 - ACIDOSIS Status: Acute (2) Viral URI with cough Code(s): J06.9 - ACUTE UPPER RESPIRATORY INFECTION, UNSPECIFIED; B97.89 - OTH VIRAL AGENTS THE CAUSE OF DISEASES CLASSD ELSWHR Status: Acute (3) Asthma Code(s): J45.909 - UNSPECIFIED ASTHMA, UNCOMPLICATED Status: Chronic (4) DM type 2 (diabetes mellitus, type 2) Status: Chronic Qualifiers: Diabetes mellitus fpc insulin use: without fpc use Diabetes mellitus complication status: without complication Qualified Code(s): E11.9 - Type 2 diabetes mellitus without complications (5) GERD (gastroesophageal reflux disease) Code(s): K21.9 - GASTRO-ESOPHAGEAL REFLUX DISEASE WITHOUT ESOPHAGITIS Status: Chronic (6) Hyperlipidemia Code(s): E78.5 - HYPERLIPIDEMIA, UNSPECIFIED Status: Chronic (7) Irritable bowel syndrome Status: Chronic (8) Multiple sclerosis Code(s): G35 - MULTIPLE SCLEROSIS Status: Chronic (9) Seizure Code(s): R56.9 - UNSPECIFIED CONVULSIONS Status: Suspected - Plan Plan: This is a 43 yo female with a pmh of DM2, Asthma, HLD, IBS, and a seizure disorder Viral URI -WBC remains WNL, pt remained afebrile overnight -Pt received 30ml/kg bolus in ER, we are encouraging PO intake but will supplement with further IVFs depending on clinical presentation during her stay -tessalon pearls, we well continue her home meds and dc nebulizer treatments Asthma -Continue home meds DM2 -Pt states that she has been taking meformin for years and that a similar episode of lactic acidosis a year ago Elevated LA -We will continue metformin upon discharge -No elevated cr, or fever overnight. -We will trend once more and then likely discharge if it continues to trend down GERD -continue home meds Epilepsy -continue home meds HLD -Continue home meds MS -monitor <Matthew Monte - Last Filed: 04/21/18 06:53> Attending Addendum - Attending Addendum Date/Time: 04/21/18 0958 I personally evaluated the patient and discussed the management with Dr. Monte I agree with the History, Examination, Assessment and Plan documented above with any addition or exceptions noted below. Pt doing well this morning. Vital signs are normal with no respiratory issues. Procalcitonin is .04 and she is afebrile. Her lactic acid continues to be elevated despite IVF. Thought this is likely due to metformin use. Continue tessalon for cough and albuterol nebs PRN. Continue PO steroids for a total of 5 days. She sees Pulmonology in the OP setting <Sunday Villalobos - Last Filed: 04/21/18 10:08>
[2018-04-21] MEDS: HumaLOG 300 UNITS/3 ML VIAL SC PRN ×3 (06:12→17:01)
[2018-04-21] MEDS ORDERED: FESOTERODINE FUMARATE 4 MG PO SCH (09:00)
[2018-04-21] MEDS: predniSONE 20 MG TAB PO SCH (09:11)
[2018-04-21] MEDS: Enoxaparin Sodium 30 MG/0.3 ML SYRINGE SC SCH (09:11)
[2018-04-21] MEDS: levETIRAcetam 500 MG TAB PO SCH ×2 (09:11→20:28)
[2018-04-21] MEDS: Vitami E (Dl,Tocopheryl Acet) 400 UNITS CAP PO SCH (09:11)
[2018-04-21] MEDS: Potassium Chloride 20 MEQ TAB PO SCH ×2 (09:11→17:00)
[2018-04-21] MEDS: TROSPIUM 20 MG TABLET PO SCH ×2 (09:12→20:28)
[2018-04-21] MEDS: Ipratropium Bromide 0.06% Nasal Inhaler 15ml EA NARE SCH ×3 (09:13→21:05)
[2018-04-21] MEDS: Benzonatate 100 MG CAP PO PRN ×2 (12:10→20:28)
[2018-04-21] MEDS ORDERED: Atorvastatin Calcium 40 MG TAB PO SCH (21:00)
[2018-04-22] MEDS: Benzonatate 100 MG CAP PO PRN ×2 (02:21→09:05)
--- NOTE | 2018-04-22 05:20 | PDOC.FM ---
- Subjective Subjective: Pt states she is doing better this morning. She denies severe SOB, chest pain, or nausea/vomiting. She does state that she has been wheezing some and coughing still. Pt asked if she felt up to it, if she could go later today. - Objective MAR Reviewed: Yes Vital Signs & Weight: Vital Signs (12 hours) Temp Pulse Resp BP Pulse Ox 04/22/18 04:14 100.3 F H 106 H 24 H 114/66 89 L 04/22/18 02:15 99.0 F 04/22/18 00:53 112 H 18 89 L 04/21/18 23:16 100.2 F H 112 H 20 114/61 89 L 04/21/18 19:31 99.9 F H 111 H 17 128/81 95 04/21/18 19:29 124 H 18 95 04/21/18 18:00 99.0 F Weight Weight 82.146 kg I&O: 04/20/18 04/21/18 04/22/18 06:59 06:59 06:59 Intake Total 720 Output Total 600 Balance 120 Result Diagrams: 04/22/18 06:01 04/22/18 06:01 <Matthew Monte - Last Filed: 04/22/18 08:11> - Objective Vital Signs & Weight: Vital Signs (12 hours) Temp Pulse Resp BP Pulse Ox 04/22/18 08:03 99 18 91 L 04/22/18 07:14 98.9 F 103 H 20 126/63 93 L 04/22/18 04:14 100.3 F H 106 H 24 H 114/66 89 L 04/22/18 02:15 99.0 F 04/22/18 00:53 112 H 18 89 L 04/21/18 23:16 100.2 F H 112 H 20 114/61 89 L Weight Weight 82.146 kg I&O: 04/21/18 04/22/18 04/23/18 06:59 06:59 06:59 Intake Total 1680 Output Total 3600 Balance -1920 Result Diagrams: 04/22/18 06:01 04/22/18 06:01 <Sunday Villalobos - Last Filed: 04/22/18 10:32> Phys Exam - Physical Examination Constitutional: NAD HEENT: moist MMs Improved lung sounds, still bilateral wheezine Cardiovascular: RRR, no significant murmur Gastrointestinal: soft, non-tender, no distention, positive bowel sounds Musculoskeletal: no edema, pulses present Neurological: moves all 4 limbs Psychiatric: normal affect, A&O x 3 <Matthew Monte - Last Filed: 04/22/18 08:11> Dx/Plan (1) Lactic acid increased Code(s): E87.2 - ACIDOSIS Status: Acute (2) Viral URI with cough Code(s): J06.9 - ACUTE UPPER RESPIRATORY INFECTION, UNSPECIFIED; B97.89 - OTH VIRAL AGENTS THE CAUSE OF DISEASES CLASSD ELSWHR Status: Acute (3) Asthma Code(s): J45.909 - UNSPECIFIED ASTHMA, UNCOMPLICATED Status: Chronic (4) DM type 2 (diabetes mellitus, type 2) Status: Chronic Qualifiers: 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: 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 operator intermodal yard use Diabetes mellitus complication status: without complication Qualified Code(s): E11.9 - Type 2 diabetes mellitus without complications (5) GERD (gastroesophageal reflux disease) Code(s): K21.9 - GASTRO-ESOPHAGEAL REFLUX DISEASE WITHOUT ESOPHAGITIS Status: Chronic (6) Hyperlipidemia Code(s): E78.5 - HYPERLIPIDEMIA, UNSPECIFIED Status: Chronic (7) Irritable bowel syndrome Status: Chronic (8) Multiple sclerosis Code(s): G35 - MULTIPLE SCLEROSIS Status: Chronic (9) Seizure Code(s): R56.9 - UNSPECIFIED CONVULSIONS Status: Suspected - Plan Plan: This is a 43 yo female with a pmh of DM2, Asthma, HLD, IBS, and a seizure disorder Viral URI -pt remained afebrile overnight -Pt received 30ml/kg bolus in ER, we are encouraging PO intake but will supplement with further IVFs depending on clinical presentation during her stay -tiffany balck, we well continue her home meds -Pt's wheezing worsened from the morning yesterday and she had difficulty maintaining O2 sats of 92% and she stayed another night for treatment and observation -Repeat LA, CBC, and BMP Asthma -Continue home meds -Duonebs DM2 -Pt states that she has been taking meformin for years and that a similar episode of lactic acidosis a year ago, I cannot find a record of a similar episode in the past. Elevated LA -We will continue metformin upon discharge -No elevated cr, or fever overnight. -We will trend once more and then likely discharge if it continues to trend down GERD -continue home meds Epilepsy -continue home meds HLD -Continue home meds MS -monitor Pt may be discharged later today, pending clinical presentation. <Matthew Monte - Last Filed: 04/22/18 08:11> Attending Addendum - Attending Addendum Date/Time: 04/22/18 1027 I personally evaluated the patient and discussed the management with Dr. Monte I agree with the History, Examination, Assessment and Plan documented above with any addition or exceptions noted below. Patient improving from a respiratory standpoint today. Her O2 sats have improved and she continues to have normal morning laboratory values. Nebulizer treatments have spaced out. Lactic acid has normalized. She is requesting to go home today. <Sunday Villalobos - Last Filed: 04/22/18 10:32>
[2018-04-22 06:21] LABS: Hemoglobin 12.2 g/dL (12.0-16.0); Mean Corpuscular HGB CONC 33.3 g/dL (32.0-36.0); Mean Corpuscular Volume 96.1 fL (78.0-98.0); Mean Platelet Volume 6.7 fL (7.4-10.4); Platelet Count 325 thou/uL (130-400); White Blood Cell (WBC) Count 9.9 thou/uL (4.8-10.8)
[2018-04-22 06:38] LABS: Anion Gap 14 mmol/L (10-20); BUN (Urea Nitrogen) 11 mg/dL (7.0-18.7); Calc. Creatinine Clearance 126 mL/min (70-130); Calcium 9.2 mg/dL (7.8-10.44); Carbon Dioxide 25 mmol/L (22-29); Chloride 103 mmol/L (98-107); Estimated GFR-MDRD 85; Glucose 123 mg/dL (70-105); Potassium 4.4 mmol/L (3.5-5.1); Sodium 138 mmol/L (136-145)
[2018-04-22] MEDS: TROSPIUM 20 MG TABLET PO SCH (09:01)
[2018-04-22] MEDS: Potassium Chloride 20 MEQ TAB PO SCH (09:01)
[2018-04-22] MEDS: levETIRAcetam 500 MG TAB PO SCH (09:01)
[2018-04-22] MEDS: Vitami E (Dl,Tocopheryl Acet) 400 UNITS CAP PO SCH (09:02)
[2018-04-22] MEDS: predniSONE 20 MG TAB PO SCH (09:02)
[2018-04-22] MEDS: Enoxaparin Sodium 30 MG/0.3 ML SYRINGE SC SCH (09:04)
[2018-04-22] MEDS: Ipratropium Bromide 0.06% Nasal Inhaler 15ml EA NARE SCH (11:20)
[2018-04-22] MEDS: HumaLOG 300 UNITS/3 ML VIAL SC PRN (11:20)
[2018-04-22 11:39] VITALS: BP 135/83; TEMP 98.1
--- NOTE | 2018-04-23 15:48 | DIS ---
DATE OF ADMISSION: 04/20/2018 DATE OF DISCHARGE: 04/22/2018 ADMITTING ATTENDING: Roge Proctor MD DISCHARGE ATTENDING: Sunday Villalobos MD RESIDENT: Matthew Monte DO CONSULTS: None. PROCEDURES: Chest x-ray, one-view, no acute cardiopulmonary process. PRIMARY DIAGNOSIS: Acute hypoxic respiratory failure secondary to her upper respiratory infection/asthma exacerbation. SECONDARY DIAGNOSES: 1. Type 2 diabetes. 2. Gastroesophageal reflux disease. 3. Epilepsy. 4. Hyperlipidemia. 5. Multiple sclerosis. DISCHARGE MEDICATIONS: 1. Tessalon Perles 100 mg p.o. q.4 hours p.r.n. cough. 2. Albuterol inhaler 2 puffs inhalation q.6 hours p.r.n. shortness of breath or wheezing. 3. Lipitor 80 mg p.o. at bedtime. 4. Duloxetine 120 mg p.o. at bedtime. 5. Toviaz 4 mg p.o. daily. 6. Ipratropium nasal inhalation 2 sprays each naris t.i.d. 7. Keppra 500 mg p.o. b.i.d. 8. Linzess 290 mcg p.o. daily. 9. Metformin 1000 mg p.o. b.i.d. 10. Metoprolol 50 mg p.o. daily. 11. Prednisone 40 mg p.o. daily. 12. Vitamin E 100 units p.o. daily. DISCONTINUED MEDICATIONS: Atenolol. BRIEF HISTORY OF PRESENT ILLNESS/HOSPITAL COURSE: This is a 43-year-old female with past medical history as listed above, presented to the ER with shortness of breath and elevated temperatures from EMS. She states that she was using her home medications with a little relief, had nonproductive cough and fever at home of 101. The patient reports a history of asthma. She states it is usually well controlled. She was still having difficulty breathing this day. While the patient was here, she was receiving DuoNebs, improved during her course. The patient's initial lactic acid was 6.0. ABG was as follows, pH 7.4, pCO2 of 34.7 , pO2 of 67.1. During her stay, her lactic acid trended down, plateaued, and then trended to 2. The patient was initially observed, was converted to inpatient due to continued difficulty maintaining oxygen saturation as well as continued wheezing despite medications. At the time of discharge, the patient was feeling better about her breathing. DISPOSITION: Stable. DISCHARGE INSTRUCTIONS: 1. Location: Home. 2. Diet: Diabetic. 3. Activity: As tolerated. 4. Followup: Follow up with Dr. Serrano in 1 to 2 weeks. Job ID: [id number] MTDD
== END 2018-04-22 12:48 | disposition home or self-care (01) | DRG 189 ==
LOC: ERS 16:01 → OBSVTOIN 21:03 → 2SW 21:03
PROVIDERS: ADMIT Family Medicine; ATTEND Family Medicine
DX: J96.01 Acute respiratory failure with hypoxia (principal); J45.901 Unspecified asthma with (acute) exacerbation; E87.2 Acidosis; J06.9 Acute upper respiratory infection, unspecified; E11.9 Type 2 diabetes mellitus without complications; K21.9 Gastro-esophageal reflux disease without esophagitis; G40.909 Epilepsy, unspecified, not intractable, without status epilepticus; E78.5 Hyperlipidemia, unspecified; G35 Multiple sclerosis; K58.9 Irritable bowel syndrome, unspecified
CPT/HCPCS: 36415; 36416; 71045; 74018; 80048; 80053; 81003; 82805; 83605; 84145; 84484; 85025; 85027; 85379; 87040; 87804; 93005; 94640; 96361; 96365; 96374; J1650; J1956; J2930; J7506; J7620

== ENCOUNTER 2018-05-03 08:02 | Outpatient (CLI) | payer OTHER ==
--- NOTE | 2018-05-03 09:42 | ULT ---
BILATERAL RENAL ULTRASOUND: History A 4-4yo female with urinary incontinence. FINDINGS: The right kidney measures 11.1 cm in length and the left kidney measures 10.1 cm in length. No focal mass or hydronephrosis is seen on either side. No shadowing stones are seen. Cortical echogenicity and thickness is normal. A small amount of urine is seen in the bladder. IMPRESSION: Unremarkable renal sonogram. POS: OFF
== END 2018-05-03 08:03 | disposition home or self-care (01) ==
LOC: BICULT 08:02
PROVIDERS: ATTEND Urology
DX: N39.46 Mixed incontinence (principal)
CPT/HCPCS: 76770

== ENCOUNTER 2018-06-07 09:48 | Emergency (ER) | payer OTHER ==
[2018-06-07] MEDS ORDERED: HYDROcodone/Acetaminophen 5/325 mg Tablet ONE (10:38)
--- NOTE | 2018-06-07 10:43 | RAD ---
FOUR VIEWS LEFT KNEE: History: Pain, fall. Comparison: None. FINDINGS: Joint spacing is preserved. No fracture. No malalignment. No joint effusion. Sclerotic focus involving the distal left femur with a subtle peripheral lucency which may represent a remote bone infarct versus a low grade chondral lesion. IMPRESSION: No post-traumatic change. POS: TOYIN
== END 2018-06-07 10:59 | disposition home or self-care (01) ==
LOC: ERS 09:48
DX: S80.02XA Contusion of left knee, initial encounter (principal); E78.5 Hyperlipidemia, unspecified; E11.9 Type 2 diabetes mellitus without complications; I49.9 Cardiac arrhythmia, unspecified; K21.9 Gastro-esophageal reflux disease without esophagitis; G43.909 Migraine, unspecified, not intractable, without status migrainosus; G47.30 Sleep apnea, unspecified; G40.909 Epilepsy, unspecified, not intractable, without status epilepticus; J45.909 Unspecified asthma, uncomplicated; Z79.899 Other long term (current) drug therapy; Z79.84 Long term (current) use of oral hypoglycemic drugs; V89.9XXA Person injured in unspecified vehicle accident, initial encounter

== ENCOUNTER 2018-09-09 08:37 | Inpatient (IN) | payer OTHER ==
[2018-09-09] MEDS ORDERED: Lorazepam 2 MG/ML VIAL ONE ×2 (09:24→13:07)
[2018-09-09] MEDS ORDERED: Succinylcholine Chloride 20 MG/ML 10 ml SYRINGE FS ONE (09:34)
[2018-09-09 09:46] LABS: #Basophils 0.1 thou/uL (0.0-0.2); #Eosinphils 0.5 thou/uL (0.0-0.7); #Lymphocytes 2.9 thou/uL (1.20-3.40); #Monocytes 0.6 thou/uL (0.11-0.59); #Neutrophils 4.2 thou/uL (1.40-6.50); %Basophils 0.9 % (0.0-1.0); %Eosinophils 5.6 % (0.0-10.0); %Lymphocytes 35.5 % (21.0-51.0); %Monocytes 7.5 % (0.0-10.0); %Neutrophils 50.5 % (42.0-75.0); Hemoglobin 13.2 g/dL (12.0-16.0); Mean Corpuscular HGB CONC 32.9 g/dL (32.0-36.0); Mean Corpuscular Hemoglobin 31.3 pg (27.0-31.0); Mean Corpuscular Volume 95.2 fL (78.0-98.0); Mean Platelet Volume 7.5 fL (7.4-10.4); Platelet Count 375 thou/uL (130-400); Red Blood Cell (RBC) Count 4.22 mill/uL (4.20-5.40); White Blood Cell (WBC) Count 8.2 thou/uL (4.8-10.8)
[2018-09-09] MEDS ORDERED: Naloxone HCl 0.4 mg/ml Vial ONE (09:46)
[2018-09-09] MEDS ORDERED: fentaNYL Citrate/PF 2,000 MCG in Sodium Chloride 0.9% 60 ML IV SCH (09:47)
[2018-09-09] MEDS ORDERED: Fentanyl 100 MCG/2 ML VIAL ONE ×2 (09:48→10:09)
[2018-09-09] MEDS ORDERED: Propofol 1,000 MG/100 ML VIAL IV ONE (09:48)
[2018-09-09 10:06] LABS: Bilirubin Negative (Negative); Blood, Urine Negative (Negative); Clarity CLEAR (Clear); Glucose, Urine (Dipstick) Negative (Negative); Leukocyte Negative (Negative); Nitrite Negative (Negative); Protein, Urine (Dipstick) Trace mg/dL (Neg-Trace); Urobilinogen 0.2 mg/dL (0.2-1.0); pH, Urine 5.5 (5.0-9.0)
[2018-09-09 10:07] LABS: Acetaminophen Less than 6.0 mcg/mL (10.0-30.0); Alcohol Less than 10 mg/dL (Less than 10); Salicylate Less than 8.0 mg/dL (15.0-30.0)
[2018-09-09 10:17] LABS: Amphetamine Not Detected (NotDetected); Barbiturates Screen Not Detected (NotDetected); Benzodiazepine Screen Not Detected (NotDetected); Cocaine Metabolite Screen Not Detected (NotDetected); Medtox Control Line Valid? VALID (VALID); Medtox Reader # READER 1; Methadone Not Detected (NotDetected); Methamphetamine Not Detected (NotDetected); Opiate Screen Not Detected (NotDetected); Oxycodone Screen Not Detected (NotDetected); Phencyclidine (PCP) Not Detected (NotDetected); Pregnancy Test - Urine (BHCG) Negative (Negative); Pregu Control Background? CLEAR/WHITE (CLR/WHITE); Pregu Control Bar Appear? YES (CONTROL BAR); THC/Cannabinoid Screen Not Detected (NotDetected); Tricyclic Screen Not Detected (NotDetected)
--- NOTE | 2018-09-09 10:19 | RAD ---
EXAM: CHEST ONE VIEW HISTORY: Altered mental status. Postintubation. COMPARISON: 04/20/2018 FINDINGS: Endotracheal tube is noted in place with the tip overlying the T5 vertebral body and above the level of the loi. Nasogastric tube is noted in place which courses into the left upper quadrant, but the tip is not imaged. Cardiac silhouette is magnified by projection. Pulmonary vasculature is within normal limits. The lungs are clear. The osseous structures are intact. Loop recording device again overlies the left chest. IMPRESSION: 1. No acute cardiac pulmonary process. 2. Endotracheal tube and nasogastric tubes noted in place.
[2018-09-09 10:22] LABS: Actual Bicarbonate (HCO3a) 20.4 mEq/L (22-28); Analyzer IN Cardio ER; Base Excess (BEa) -4.9 mEq/L (-2.0 to +3.0); CO2 Tension 38.9 mmHg (35.0-45.0); Calcium, Ionized 1.15 mmol/L (1.12-1.30); Carboxyhemoglobin (COHb) 0.3 gm% (0.0-3.0); O2 Tension (PaO2) 273.5 mmHg (80.0-100.0); Potassium - ABG Lab 4.05 mmol/L (3.70-5.30); pH, Arterial 7.34 (7.35-7.45)
[2018-09-09 10:23] LABS: ALV-art Gradient 34.375 (0-20); Puncture Site RB
[2018-09-09 10:24] LABS: ALT (SGPT) 33 U/L (8-55); Albumin 4.3 g/dL (3.5-5.0); Alkaline Phosphatase 108 U/L (40-150); BUN (Urea Nitrogen) 14 mg/dL (7.0-18.7); Bilirubin, Total 0.8 mg/dL (0.2-1.2); Calc. Creatinine Clearance 0 mL/min (70-130); Calcium 9.4 mg/dL (7.8-10.44); Carbon Dioxide 21 mmol/L (22-29); Chloride 103 mmol/L (98-107); Estimated GFR-MDRD 77; Glucose 126 mg/dL (70-105); Lipase 14 U/L (8-78); Sodium 137 mmol/L (136-145)
[2018-09-09 10:28] LABS: Anion Gap 18 mmol/L (10-20); Globulin 3.6 g/dL (2.4-3.5); Potassium 4.6 mmol/L (3.5-5.1); Protein, Total 7.9 g/dL (6.0-8.3)
[2018-09-09 10:37] LABS: AST (SGOT) 32 U/L (5-34)
[2018-09-09] MEDS ORDERED: ISOVUE-370 76%-LOCM 1 ML ONE (11:16)
--- NOTE | 2018-09-09 11:37 | CT ---
CT BRAIN: Date: 09-10-18 Provided Clinical History: Altered mental status. FINDINGS: Comparison 01-25-17. The ventricular system appears normal in size and morphology. There is no evidence for intracranial h emorrhage or mass effect. The extracranial soft tissues and osseous structures demonstrate no evidenc e for acute fracture. IMPRESSION: No evidence for intracranial hemorrhage or mass effect. POS: TPC
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
[2018-09-09] MEDS ORDERED: Lorazepam 2 MG/ML VIAL SLOW IVP SCH (13:15)
[2018-09-09 13:27] VITALS: BMI 31.4
--- NOTE | 2018-09-09 13:55 | CT ---
CTA HEAD WITH IV CONTRAST AND 3D POSTPROCESSING CTA NECK WITH IV CONTRAST AND 3D POSTPROCESSING: HISTORY: Dizziness, altered mental status. FINDINGS: There is normal flow and caliber of the carotid artery and vertebrobasilar systems on either side. N o evidence of stenosis, major branch occlusion, or aneurysm formation is seen. The salivary glands and thyroid gland appear normal. No cervical lymphadenopathy is seen. Endotrac heal and nasogastric tubes are seen. There are mild infiltrates versus atelectatic changes in the up per lung laughlin. Bony structures are unremarkable. IMPRESSION: Normal CTA of the head and neck. POS: [facility]
[2018-09-09] MEDS ORDERED: Lorazepam 2 MG/ML VIAL SLOW IVP PRN (14:05)
[2018-09-09 14:26] LABS: Lactic Acid 2.6 mmol/L (0.5-2.2)
[2018-09-09 14:35] LABS: Troponin I 0.023 ng/mL (< 0.028)
[2018-09-09 17:47] LABS: Troponin I Less than 0.010 ng/mL (< 0.028)
--- NOTE | 2018-09-09 19:09 | CON ---
DATE OF CONSULTATION: 09/09/2018 This encompassed 70 minutes of critical care time. CONSULTING PHYSICIAN: [facility]. REASON FOR CONSULTATION: Acute respiratory failure. HISTORY OF PRESENT ILLNESS: The patient was apparently scheduled to be seen [facility] at the [facility] earlier today. She had some type of event in the waiting room and was advised to go to the emergency room. Not sure about the events after that. Apparently, the patient drove herself over to the hospital and actually walked back to her room. Shortly thereafter, she became unresponsive and had to be intubated. She was given etomidate and Ativan and succinylcholine for intubation, did not receive any paralytic sedation since that time. She has undergone a brain CT which was negative. She has had a samish of Sylvester angio with contrast, which is still pending for results. PAST MEDICAL HISTORY: 1. Diabetes mellitus type 2. 2. Cardiac arrhythmias. 3. Hyperlipidemia. 4. Gastroesophageal reflux. 5. Epilepsy. 6. Multiple sclerosis. 7. Irritable bowel syndrome. PAST SURGICAL HISTORY: 1. Appendectomy. 2. Cholecystectomy. 3. . 4. Hysterectomy. 5. Some type of orthopedic surgery. FAMILY MEDICAL HISTORY: Unremarkable. SOCIAL HISTORY: Apparently nonsmoker, does not consume alcohol. MEDICATIONS: Prior to admission; 1. Metformin. 2. Linzess. 3. Metoprolol. 4. Toviaz. 5. Atorvastatin. 6. Lamictal. 7. Atenolol. ALLERGIES: ADHESIVE TAPE, ASPIRIN, CODEINE, DILANTIN, FLAGYL, PENICILLIN, PHENERGAN, AND VIOXX. REVIEW OF SYSTEMS: Cannot be obtained as the patient is currently obtunded on mechanical ventilation. PHYSICAL EXAMINATION: VITAL SIGNS: Temperature 97.5, pulse 70, blood pressure 130/95, respiratory rate 18. This patient is intubated and on mechanical ventilation. HEENT: Pupils sluggishly reactive. Does not have extraocular movements. Sclerae anicteric. Oropharynx clear. NECK: No JVD. LUNGS: Clear to auscultation. No wheezing or rhonchi. CARDIAC: S1 and S2 regular without audible murmur. ABDOMEN: Soft, obese, nontender, and nondistended. EXTREMITIES: No clubbing, cyanosis, or edema. NEUROLOGIC: She will not withdraw to deep pain. She has no gag reflex. LABORATORY DATA: White blood cell count 8.2, hematocrit 40, platelet count 375. pH 7.34, pCO2 of 38, pO2 of 273 on assist-control rate 16, tidal volume 450, PEEP 5, pressure support 10, and FiO2 of 50%. Sodium 137, potassium 4.6, chloride 103, CO2 of 21, BUN 14, creatinine 0.8, glucose 126. Tox screen was negative. ASSESSMENT: 1. The patient seems to have some type of devastating neurologic event. Definitely could have had some type of brainstem stroke or be in status epilepticus. 2. Acute respiratory failure secondary to neurologic event. RECOMMENDATIONS: 1. Recommend stat EEG and perhaps MRI if Neurology agrees. 2. Supportive care with mechanical ventilation. 3. We will follow with you. Job ID: [id number]
[2018-09-09] MEDS: Famotidine/PF 20 mg/2ml Vial SLOW IVP SCH (21:50)
--- NOTE | 2018-09-09 23:08 | CON ---
DATE OF CONSULTATION: 09/09/2018 CONSULT PHYSICIAN: [facility]. IMPRESSION: Transient unresponsiveness either due to conversion disorder versus subclinical seizures. She appears to be coming around at this point, and her EEG is unremarkable. PLAN: 1. I increased her Keppra to 750 twice a day. 2. She can be discharged to follow up with her neurologist in [place]. HISTORY OF PRESENT ILLNESS: Ms. Oglesby is a 43-year-old white female whom I have taken care of in the past. She carried a diagnosis of chronic headaches and questionable multiple sclerosis. She left the practice and was seen by Dr. Valdez after what was thought to be a seizure, she was subsequently started on Keppra. Her EEG and MRI of the brain never showed any progression of the white matter lesions. She had a spinal tap done, which did not show any active inflammation. She was treated with Tecfidera for an interval time and continued on Keppra. Her reports he has not seen any convulsive activity in over a year. She started complaining that she was feeling strangely and he thought that she was acting a bit odd prior to admission. He brought her to the hospital for evaluation where she became completely unresponsive. The residents report that she did not seem to have any pain response or gag response when they intubated her. She was briefly treated with propofol and fentanyl and received a dose of Ativan. She has since been extubated and is awake and somewhat cooperative. She had active EEG going during the evaluation, which showed a normal background without any epileptiform activity. She had a CT and CTA in the ER, which were both unremarkable. Her lab work was all within normal limits. Her Keppra level was in the low end of the range at 5. PAST MEDICAL HISTORY: As listed above. ALLERGIES: MULTIPLE. SOCIAL HISTORY: No illicit drug use known. FAMILY HISTORY: Noncontributory. REVIEW OF SYSTEMS: Not obtainable at this point due to her level of cooperativeness. PHYSICAL EXAMINATION: GENERAL: She is a somewhat overweight middle-aged woman, lying in bed quietly. VITAL SIGNS: Stable. She has been afebrile. HEENT: Pupils are equal and reactive. Conjunctivae clear. NECK: Supple with no lymphadenopathy. EXTREMITIES: No cyanosis. NEUROLOGIC: She would open her eyes to verbal stimulation and follow simple commands. Face appears to be symmetric. Eye movements are intact. Tone is symmetric with increased reflexes at both ankles with 3-4 beats of clonus. Gait is not testable. No abnormal movements are seen. SUMMARY: Middle-aged woman with history of possible MS and possible seizures, who has transient unresponsiveness and nothing remarkable on her workup. It is possible she had a subclinical seizure, but it appears to be coming around. Continue her current management as noted above. Job ID: [id number] MTDD
[2018-09-10 05:37] LABS: #Basophils 0.1 thou/uL (0.0-0.2); #Eosinphils 0.3 thou/uL (0.0-0.7); #Lymphocytes 2.3 thou/uL (1.20-3.40); #Monocytes 0.5 thou/uL (0.11-0.59); #Neutrophils 5.6 thou/uL (1.40-6.50); %Basophils 0.7 % (0.0-1.0); %Eosinophils 3.7 % (0.0-10.0); %Lymphocytes 26.2 % (21.0-51.0); %Monocytes 5.9 % (0.0-10.0); %Neutrophils 63.6 % (42.0-75.0); Hemoglobin 11.8 g/dL (12.0-16.0); Mean Corpuscular HGB CONC 34.5 g/dL (32.0-36.0); Mean Corpuscular Volume 95.7 fL (78.0-98.0); Mean Platelet Volume 7.4 fL (7.4-10.4); Platelet Count 337 thou/uL (130-400); Red Blood Cell (RBC) Count 3.58 mill/uL (4.20-5.40); White Blood Cell (WBC) Count 8.8 thou/uL (4.8-10.8)
[2018-09-10 05:59] LABS: ALT (SGPT) 29 U/L (8-55); AST (SGOT) 27 U/L (5-34); Albumin 3.8 g/dL (3.5-5.0); Alkaline Phosphatase 99 U/L (40-150); Anion Gap 13 mmol/L (10-20); BUN (Urea Nitrogen) 7 mg/dL (7.0-18.7); Bilirubin, Total 1.2 mg/dL (0.2-1.2); Calc. Creatinine Clearance 147 mL/min (70-130); Carbon Dioxide 25 mmol/L (22-29); Chloride 105 mmol/L (98-107); Estimated GFR-MDRD Greater than 90; Glucose 93 mg/dL (70-105); Potassium 3.4 mmol/L (3.5-5.1); Protein, Total 6.8 g/dL (6.0-8.3); Sodium 140 mmol/L (136-145)
[2018-09-10 06:03] VITALS: TEMP 99.3
--- NOTE | 2018-09-10 06:44 | PDOC.FM ---
- Subjective Subjective: Seen at bedside this morning resting comfortably. She is alert and answers questions appropriately. Her only complaint is that she is tired. There were no acute events over night. She remembers only that she "went to town to see her doctor" yesterday. She does not know how she got to the hospital - Objective MAR Reviewed: Yes Vital Signs & Weight: Vital Signs (12 hours) Temp Pulse Ox 09/10/18 04:00 99.3 F 09/10/18 00:00 98.1 F 09/09/18 20:00 98.6 F 95 Weight Admit Weight 82.554 kg Weight 83 kg Most Recent Monitor Data Heart Rate from ECG 91 NIBP 111/69 NIBP BP-Mean 83 Respiration from ECG 19 SpO2 93 I&O: 09/08/18 09/09/18 09/10/18 06:59 06:59 06:59 Intake Total 115 Output Total 2600 Balance -2485 Result Diagrams: 09/10/18 04:28 09/10/18 04:28 Phys Exam - Physical Examination Constitutional: NAD HEENT: moist MMs Neck: no JVD Respiratory: clear to auscultation bilateral Cardiovascular: RRR, no significant murmur Gastrointestinal: soft, non-tender, no distention Musculoskeletal: no edema Neurological: non-focal, normal sensation, moves all 4 limbs Psychiatric: normal affect, A&O x 3 Skin: no rash Dx/Plan (1) Seizure disorder Code(s): G40.909 - EPILEPSY, UNSP, NOT INTRACTABLE, WITHOUT STATUS EPILEPTICUS Status: Chronic (2) Conversion disorder Code(s): F44.9 - DISSOCIATIVE AND CONVERSION DISORDER, UNSPECIFIED Status: Suspected (3) Lactic acid increased Code(s): E87.2 - ACIDOSIS Status: Acute (4) DM type 2 (diabetes mellitus, type 2) Status: Chronic Qualifiers: Diabetes mellitus correction insulin use: without 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 Transient period of unresponsiveness. - unclear etiology. It is possible that this was related to a seizure vs conversion disorder. - this morning patient is awake and neurologically intact. - CTA and CT brain are normal - EEG is normal - lab values generally appear normal with the exception of elevated lactic acid - was seen by Dr Temple yesterday and he feels that she is safe to be dc'd home and fu with outpatient neuro 2. Seizure disorder - keppra has been increased. 3. Lactic acidosis - recheck this am. This may point to seizure activity 4. DM2 - restart home meds - achs glucose checks 5. Blindness, monocular vision - fall precautions 6. GERD - home meds Dispo: patient appears to be at baseline. Plan to dc today and follow up with outpatient neuro Addendum - Attending - Attending Attestation Date/Time: 09/10/18 8218 I personally evaluated the patient and discussed the management with Dr. Mccann I agree with the History, Examination, Assessment and Plan documented above with any addition or exceptions noted below. Patient alert non focal exam yesterday EEG and prolactin level did not favor seizure. No confirmatory history of Multiple Sclerosis. Patient Keppra increased and stable to dismiss with further evaluation per Neurology as outpatient. Instruct patient not to operate machinery,drive,swim or climb ladders until cleared by Neurology for assumed seizure verse conversion reaction. Appreciate recommendation from Specialty consultants.
[2018-09-10] MEDS ORDERED: Non-Formulary Item 1 EACH (Linaclotide [Linzess] 290 MCG) PO SCH (07:30)
--- NOTE | 2018-09-10 07:39 | RAD ---
CHEST 1 VIEW: Date: 09/10/18 INDICATION: History of pneumonia. COMPARISON: Prior exam dated 09/09/18. FINDINGS: Patient has been extubated with removal of gastric catheter. Loop recorder is unchanged. Mild cardiom egaly is stable. Lungs are clear. No pleural effusion or pneumothorax evident. IMPRESSION: Interval extubation. POS: [facility]
[2018-09-10] MEDS ORDERED: metFORMIN 500 MG TAB PO SCH (08:00)
[2018-09-10] MEDS ORDERED: Non-Formulary Item 1 EACH (Metformin Hcl [Glucophage] 1,000 MG) PO SCH (08:00)
--- NOTE | 2018-09-10 08:17 | PRG ---
DATE OF SERVICE: 09/10/2018 SUBJECTIVE: She is perfectly awake this morning. She was extubated yesterday. We were not entirely sure what happened. This could have been a conversion disorder, kind a bit of seizure. OBJECTIVE: VITAL SIGNS: Temperature 99.3, pulse 83, and blood pressure 111/69. HEENT: Unremarkable. NECK: No JVD. CHEST: Clear to auscultation without wheezing. CARDIAC: S1 and S2. Regular. ABDOMEN: Soft and nontender. EXTREMITIES: No clubbing, cyanosis, or edema. NEUROLOGIC: Moves all 4 extremities without no focality. LABORATORY DATA: White blood cell count 8.8, hematocrit 34.3, and platelet count 337. Sodium 140, potassium 3.4, chloride 105, CO2 of 25, BUN 7, creatinine 0.6, and glucose 93. Her chest x-ray is clear. ASSESSMENT: 1. Conversion disorder versus seizure. 2. Status post acute respiratory failure. PLAN: She is extubated. She is probably stable to either go home. At the very least, she needs to be moved out of the CCU. Pulmonary will sign off. Please recall if further assistance needed. Job ID: [id number]
[2018-09-10] MEDS ORDERED: Non-Formulary Item 1 EACH (Vitamin E [Vitamin E] 400 UNIT) PO SCH (09:00)
[2018-09-10] MEDS ORDERED: Vitamin E 400 UNITS CAP PO SCH (09:00)
[2018-09-10] MEDS ORDERED: FESOTERODINE FUMARATE 4 MG PO SCH ×2 (09:00)
[2018-09-10] MEDS ORDERED: levETIRAcetam 500 MG TAB PO SCH (09:00)
[2018-09-10] MEDS: Famotidine/PF 20 mg/2ml Vial SLOW IVP SCH (09:20)
[2018-09-10 20:41] VITALS: BP 115/76
[2018-09-10] MEDS ORDERED: DULoxetine 60 MG CAP PO SCH (21:00)
[2018-09-10] MEDS ORDERED: Atorvastatin Calcium 40 MG TAB PO SCH (21:00)
--- NOTE | 2018-09-11 05:08 | DIS ---
DATE OF ADMISSION: 09/09/2018 DATE OF DISCHARGE: 09/10/2018 ADMITTING ATTENDING: Antonio Cabrera MD. DISCHARGE ATTENDING: Antonio Cabrera MD. RESIDENT: Kyler Mccann DO. CONSULTS: 1. Critical Care Pulmonology, Gonzalez Edwards MD. 2. Neurology, José Temple MD. PROCEDURES: 1. Brain CT on 09/09, findings, no evidence for intracranial hemorrhage or mass effect. 2. Chest x-ray on 09/09, findings, no acute cardiopulmonary process, endotracheal tube and nasogastric tube in place. 3. CTA of head and neck, findings, normal CTA of head and neck. ADMITTING DIAGNOSES: 1. Altered mental status. 2. Respiratory failure. SECONDARY DIAGNOSES: 1. Seizure disorder. 2. Multiple sclerosis. 3. Borderline personality disorder. 4. Diabetes mellitus 2. 5. Mitral valve stenosis. 6. Gastroesophageal reflux disease. 7. Hyperlipidemia. 8. Irritable bowel syndrome. 9. Blindness in left eye. 10. Post-traumatic stress disorder. DISCHARGE MEDICATIONS: 1. Linzess 290 mcg p.o. daily. 2. ProAir two puffs inhaled q.6 p.r.n. shortness of breath. 3. Metformin 1000 mg p.o. b.i.d. 4. Duloxetine 120 mg p.o. at bedtime. 5. Keppra 750 mg p.o. b.i.d. 6. Lipitor 80 mg p.o. at bedtime. 7. Atrovent 2 sprays each naris t.i.d. 8. Toviaz 4 mg p.o. daily. 9. Vitamin E 400 mg p.o. daily. 10. Metoprolol succinate 50 mg p.o. daily. 11. Tessalon Perles 100 mg p.o. q.4 p.r.n. cough. 12. Prednisone 5 mg p.o. q.a.m. x3 days. DISCONTINUED MEDICATIONS: Keppra 500 mg p.o. b.i.d. HOSPITAL COURSE: This is a 43-year-old female who presents to the emergency room with complaint of dizziness. Shortly after entering into triage, the patient became unresponsive with a GCS of 3. After attempt to arouse the patient, it was determined that she was unable to protect airway and was paralyzed and intubated. CT and CTA of the head were both negative. Lab abnormalities were noncontributory with the exception of a slight lactic acidosis of 2.5, otherwise everything was generally normal. Tox screen was negative. There is some concern that the patient might be in status epilepticus and the patient was given Ativan without any change. The patient was taken off sedation and remained unresponsive. While un-sedated , the patient tolerated the tube without any feeling of discomfort, would not withdraw from pain, had no corneal reflexes, had no gag reflexes, and had 3 to 4 beats of clonus in both ankles. After 1 to 2 hours of arriving in the ICU approximately 3 hours of being off sedation, the patient became more responsive to commands and would answer questions. The patient was extubated without complication. However, had no memory of the event. Neurology saw the patient and ran an EEG which was normal. It is unclear at this time what precipitated this event and most likely diagnosis is conversion versus subclinical seizure. The patient's Keppra was increased and she was advised to follow up with her neurologist in the outpatient setting. She was discharged home in good condition on 2nd day of admission without any further episodes. DISCHARGE INSTRUCTIONS: 1. Location: Home. 2. Diet: Regular. 3. Followup: Follow up with Neurology in 1 week. 4. Activity: No driving or operating machinery until she is cleared by Neurology. Job ID: [id number] [facility]
== END 2018-09-10 11:20 | disposition home or self-care (01) | DRG 100 ==
LOC: ERS 08:37 → CCU 10:23
PROVIDERS: ADMIT Family Medicine; ATTEND Family Medicine
PROC: 0BH17EZ Insertion of Endotracheal Airway into Trachea, Via Natural or Artificial Opening (ICD-10-PCS; principal; 2018-09-09)
DX: G40.901 Epilepsy, unspecified, not intractable, with status epilepticus (principal); J96.00 Acute respiratory failure, unspecified whether with hypoxia or hypercapnia; R40.2113 Coma scale, eyes open, never, at hospital admission; G93.41 Metabolic encephalopathy; R40.2213 Coma scale, best verbal response, none, at hospital admission; R40.2313 Coma scale, best motor response, none, at hospital admission; E87.2 Acidosis; F44.9 Dissociative and conversion disorder, unspecified; E78.5 Hyperlipidemia, unspecified; K21.9 Gastro-esophageal reflux disease without esophagitis; H54.8 Legal blindness, as defined in USA; E11.43 Type 2 diabetes mellitus with diabetic autonomic (poly)neuropathy; J45.909 Unspecified asthma, uncomplicated; K31.84 Gastroparesis; F41.9 Anxiety disorder, unspecified; F32.9 Major depressive disorder, single episode, unspecified; K58.9 Irritable bowel syndrome, unspecified; F43.10 Post-traumatic stress disorder, unspecified; I48.91 Unspecified atrial fibrillation; F60.3 Borderline personality disorder; G35 Multiple sclerosis; Z88.0 Allergy status to penicillin; Z90.49 Acquired absence of other specified parts of digestive tract; Z79.84 Long term (current) use of oral hypoglycemic drugs; Z88.5 Allergy status to narcotic agent; Z88.8 Allergy status to other drugs, medicaments and biological substances; Z79.899 Other long term (current) drug therapy; Z79.52 Long term (current) use of systemic steroids
CPT/HCPCS: 31500; 36415; 36416; 51702; 70450; 70496; 70498; 71045; 80053; 80177; 80306; 80307; 81003; 81025; 82805; 83605; 83690; 84146; 84443; 84484; 85025; 93005; 94002; 95816; 95819; 96361; 96365; 96375; 99292; J2060; J2310; J2704; J3010; J3490; Q9966; S0028

== ENCOUNTER 2018-12-08 18:20 | Emergency (ER) | payer OTHER ==
--- NOTE | 2018-12-08 19:08 | RAD ---
PORTABLE CHEST: 12/08/18 HISTORY: Chest pain. Lung laughlin are clear. Heart and mediastinum unremarkable. Vascular markings normal. IMPRESSION: Negative portable chest. POS: OFF
[2018-12-08 19:24] LABS: #Basophils 0.1 thou/uL (0.0-0.2); #Eosinphils 0.4 thou/uL (0.0-0.7); #Lymphocytes 2.2 thou/uL (1.20-3.40); #Monocytes 0.5 thou/uL (0.11-0.59); %Basophils 0.9 % (0.0-1.0); %Lymphocytes 27.1 % (21.0-51.0); %Monocytes 6.3 % (0.0-10.0); %Neutrophils 60.8 % (42.0-75.0); Hemoglobin 11.7 g/dL (12.0-16.0); Mean Corpuscular HGB CONC 33.2 g/dL (32.0-36.0); Mean Corpuscular Volume 96.7 fL (78.0-98.0); Mean Platelet Volume 7.3 fL (7.4-10.4); Platelet Count 305 thou/uL (130-400); RBC Distribution Width 11.9 % (11.5-14.5); Red Blood Cell (RBC) Count 3.64 mill/uL (4.20-5.40); White Blood Cell (WBC) Count 8.2 thou/uL (4.8-10.8)
[2018-12-08 19:43] LABS: ALT (SGPT) 12 U/L (8-55); AST (SGOT) 16 U/L (5-34); Albumin 4.1 g/dL (3.5-5.0); Alkaline Phosphatase 103 U/L (40-150); Anion Gap 13 mmol/L (10-20); BUN (Urea Nitrogen) 9 mg/dL (7.0-18.7); Bilirubin, Total 0.5 mg/dL (0.2-1.2); CK (CPK) 106 U/L (29-168); Calc. Creatinine Clearance 0 mL/min (70-130); Calcium 9.3 mg/dL (7.8-10.44); Carbon Dioxide 26 mmol/L (22-29); Chloride 104 mmol/L (98-107); Estimated GFR-MDRD 89; Globulin 2.9 g/dL (2.4-3.5); Glucose 173 mg/dL (70-105); Lipase 16 U/L (8-78); Potassium 3.6 mmol/L (3.5-5.1); Sodium 139 mmol/L (136-145)
[2018-12-08] MEDS ORDERED: Ketorolac Tromethamine 30 MG/ML VIAL ONE (20:13)
== END 2018-12-08 20:27 | disposition home or self-care (01) ==
LOC: ERS 18:20
DX: R07.2 Precordial pain (principal); E11.9 Type 2 diabetes mellitus without complications; E78.5 Hyperlipidemia, unspecified; F32.9 Major depressive disorder, single episode, unspecified; F41.9 Anxiety disorder, unspecified; F43.10 Post-traumatic stress disorder, unspecified; G40.909 Epilepsy, unspecified, not intractable, without status epilepticus; G47.30 Sleep apnea, unspecified; J45.909 Unspecified asthma, uncomplicated; K21.9 Gastro-esophageal reflux disease without esophagitis; Z79.84 Long term (current) use of oral hypoglycemic drugs; Z79.899 Other long term (current) drug therapy
CPT/HCPCS: 71045; 80053; 82550; 83690; 83880; 84484; 85025; 93005; 96374; J1885

== ENCOUNTER 2019-02-20 21:30 | Observation (INO) | payer OTHER ==
[2019-02-20 22:53] LABS: #Basophils 0.1 thou/uL (0.0-0.2); #Eosinphils 0.6 thou/uL (0.0-0.7); #Monocytes 0.6 thou/uL (0.11-0.59); #Neutrophils 5.2 thou/uL (1.40-6.50); %Basophils 0.9 % (0.0-1.0); %Eosinophils 6.5 % (0.0-10.0); %Lymphocytes 31.7 % (21.0-51.0); %Monocytes 6.5 % (0.0-10.0); %Neutrophils 54.4 % (42.0-75.0); Hemoglobin 12.8 g/dL (12.0-16.0); Mean Corpuscular HGB CONC 34.4 g/dL (32.0-36.0); Mean Corpuscular Hemoglobin 32.8 pg (27.0-31.0); Mean Corpuscular Volume 95.4 fL (78.0-98.0); Mean Platelet Volume 7.1 fL (7.4-10.4); Platelet Count 338 thou/uL (130-400); RBC Distribution Width 11.5 % (11.5-14.5); Red Blood Cell (RBC) Count 3.89 mill/uL (4.20-5.40); White Blood Cell (WBC) Count 9.5 thou/uL (4.8-10.8)
--- NOTE | 2019-02-20 23:00 | RAD ---
AP CHEST: History: Chest pain FINDINGS: The lungs are clear. Heart and mediastinum are unremarkable. IMPRESSION: Negative chest. POS: OFF
[2019-02-20 23:14] LABS: ALT (SGPT) 28 U/L (8-55); AST (SGOT) 34 U/L (5-34); Albumin 4.3 g/dL (3.5-5.0); Alkaline Phosphatase 104 U/L (40-110); Anion Gap 17 mmol/L (10-20); BUN (Urea Nitrogen) 13 mg/dL (7.0-18.7); Bilirubin, Total 0.3 mg/dL (0.2-1.2); Calc. Creatinine Clearance 0 mL/min (70-130); Calcium 9.5 mg/dL (7.8-10.44); Carbon Dioxide 23 mmol/L (22-29); Chloride 101 mmol/L (98-107); Estimated GFR-MDRD 69; Globulin 3.3 g/dL (2.4-3.5); Glucose 138 mg/dL (70-105); Lipase 21 U/L (8-78); Potassium 3.8 mmol/L (3.5-5.1); Protein, Total 7.6 g/dL (6.0-8.3); Sodium 137 mmol/L (136-145)
[2019-02-21] MEDS ORDERED: Clopidogrel Bisulfate 75 MG TAB ONE
[2019-02-21] MEDS ORDERED: Nitroglycerin 2% Ointment 1 INCH/1 GM Packet ONE
[2019-02-21] MEDS ORDERED: Acetaminophen 325 MG TAB PO PRN (01:46)
[2019-02-21 02:26] VITALS: BMI 33.1
[2019-02-21 02:26] LABS: Troponin I Less than 0.010 ng/mL (< 0.028)
[2019-02-21] MEDS ORDERED: PROVENTIL INHALER 6.7 G (200 INHALATIONS) INH PRN (02:55)
[2019-02-21] MEDS ORDERED: Calcium Carbonate 500 MG ChewTAB PO PRN (02:56)
[2019-02-21] MEDS ORDERED: Ondansetron PF 4 MG/2 ML Vial IVP PRN (02:56)
[2019-02-21] MEDS ORDERED: Ondansetron ODT 4 MG TAB PO PRN (02:56)
[2019-02-21] MEDS ORDERED: Senokot S 8.6-50 MG TAB PO PRN (02:56)
--- NOTE | 2019-02-21 03:19 | PDOC.FPRHP ---
- History of Present Illness Chief Complaint: chest pain History of Present Illness: Patient is a 43 yo female who presents to [facility] with complaint of chest pain. Patient has previously experienced chest pain on left side of chest described as dull ache that occurred intermittently, has occurred for past several weeks. On 02/20/19 the chest pain changed, becoming more frequent and lasting longer. Additionally characterized as now sharp and stabbing with new tightness sensation. No difference with exertion. Pain radiates into left shoulder and down left arm. New symptoms of nausea and headache that started earlier in the day. Patient was given Nitro patch in the ED but states this did not relieve her chest pain. She did not try any pain meds at home for chest pain. Denies history of trauma to chest or left arm. Patient states she has been trying to get a stress test scheduled outpatient but has been unable to do so at this time. ED Course: Troponin neg x1, to trend. Nonspecific EKG changes: rate 100, sinus rhythm, no ST changes. CXR neg for acute pathology. Given Nitro & Plavix. - Allergies/Adverse Reactions Allergies Allergy/AdvReac Type Severity Reaction Status Date / Time aspirin Allergy Intermediate PASSED OUT Verified 02/21/19 01:29 codeine Allergy Intermediate VIOLENT Verified 02/21/19 01:29 BEHAVIOR Penicillins Allergy Intermediate Rash Verified 02/21/19 01:29 adhesive Allergy Verified 02/21/19 01:29 dextrose 5 % in water Allergy regalado's Verified 02/21/19 01:29 [From Zyvox] palsey linezolid [From Zyvox] Allergy regalado's Verified 02/21/19 01:29 palsey milk Allergy Verified 02/21/19 01:29 phenytoin sodium Allergy Verified 02/21/19 01:29 [From Dilantin] phenytoin sodium extended Allergy Verified 02/21/19 01:29 [From Dilantin] metronidazole [From Flagyl] AdvReac STOMACH Verified 02/21/19 01:29 UPSET promethazine HCl AdvReac UPSET Verified 02/21/19 01:29 [From Phenergan] STOMACH - Home Medications Medication Instructions Recorded Confirmed Type Linaclotide [Linzess] 290 mcg PO DAILY-AC 06/24/16 02/21/19 History Albuterol Sulfate [Proair HFA] 2 puff INH Q6HR PRN 09/05/16 02/21/19 History metFORMIN HCl [Glucophage] 1,000 mg PO BID-WM #60 tablet 09/15/16 02/21/19 Rx DULoxetine HCl [Duloxetine HCl] 120 mg PO HS 01/26/17 02/21/19 History Atorvastatin Calcium [Lipitor] 80 mg PO HS 12/28/17 02/21/19 History Metoprolol Succinate 50 mg PO DAILY 04/20/18 02/21/19 History Ivabradine [Corlanor] 5 mg PO BID 02/21/19 02/21/19 History Pantoprazole Sodium 40 mg PO BID 02/21/19 02/21/19 History levETIRAcetam [Keppra] 1,000 mg PO DAILY 02/21/19 02/21/19 History - History PMHx: DM, GERD, HLD, Epilepsy, Sleep apnea, Multiple Sclerosis, Afib, Gastroparesis, Borderline personality disorder, PTSD, MDD, Asthma, IBS PSHx: Appendectomy, Cholecystectomy, Left foot repair, hysterectomy for concerning right ovarian cyst/mass (left in left ovary only) FHx: multiple family members with DE in age 30s; Mom & brother had DE in their late 30s, Dad hx unknown Social: prior smoker quit in 1997, occasional EtOH use - Review of Systems General: denies: fever/chills, weight/appetite/sleep changes, fatigue Eyes: denies: eye pain, vision changes ENT: denies: nasal congestion Respiratory: denies: cough, congestion, shortness of breath Cardiovascular: reports: chest pain. denies: palpitation, edema Gastrointestinal: reports: nausea. denies: vomiting, diarrhea, constipation, abdominal pain Genitourinary: denies: dysuria Skin: denies: rashes, itching Musculoskeletal: denies: pain, tenderness, arthritis/arthralgias Neurological: denies: numbness, weakness - Vital signs BP: 121/74 HR: 78 RR: 18 Tmax: 98F Pox: 95% on RA Wt: 79.6 kg - Physical Exam Constitutional: NAD, awake, alert and oriented, well developed HEENT: normocephalic and atraumatic, EOMI, conjunctiva clear, no scleral icterus , grossly normal vision, grossly normal hearing, MMM Neck: supple, no JVD Chest: no-tender to palpation, no lesions Lungs: CTAB, no respiratory distress, good air movement, no rales/rhonchi, no wheezing Abdomen: soft, non-tender, bowel sounds present, no masses/distention Musculoskeletal: normal structure, normal tone Neurological: no focal deficit, normal sensation Skin: no rash/lesions, good turgor Heme/Lymphatic: no unusual bruising or bleeding Psychiatric: normal mood and affect, intact recent and remote memory FMR H&P: Results - Labs Result Diagrams: 02/20/19 22:43 02/20/19 22:43 Lab results: WBC 9.5 thou/uL (4.8-10.8) 02/20/19 22:43 Hgb 12.8 g/dL (12.0-16.0) 02/20/19 22:43 Hct 37.1 % (36.0-47.0) 02/20/19 22:43 MCV 95.4 fL (78.0-98.0) 02/20/19 22:43 Plt Count 338 thou/uL (130-400) 02/20/19 22:43 Neutrophils % 54.4 % (42.0-75.0) 02/20/19 22:43 Sodium 137 mmol/L (136-145) 02/20/19 22:43 Potassium 3.8 mmol/L (3.5-5.1) 02/20/19 22:43 Chloride 101 mmol/L (98-107) 02/20/19 22:43 Carbon Dioxide 23 mmol/L (22-29) 02/20/19 22:43 BUN 13 mg/dL (7.0-18.7) 02/20/19 22:43 Creatinine 0.89 mg/dL (0.6-1.1) 02/20/19 22:43 Glucose 138 mg/dL (70-105) H 02/20/19 22:43 Calcium 9.5 mg/dL (7.8-10.44) 02/20/19 22:43 Total Bilirubin 0.3 mg/dL (0.2-1.2) 02/20/19 22:43 AST 34 U/L (5-34) 02/20/19 22:43 ALT 28 U/L (8-55) 02/20/19 22:43 Alkaline Phosphatase 104 U/L (40-110) 02/20/19 22:43 Serum Total Protein 7.6 g/dL (6.0-8.3) 02/20/19 22:43 Albumin 4.3 g/dL (3.5-5.0) 02/20/19 22:43 Lipase 21 U/L (8-78) 02/20/19 22:43 - EKG Interpretation EKG: sinus rhythm, rate 100, no ST changes FMR H&P: A/P - Problem List (1) Atypical chest pain Current Visit: No Status: Acute Code(s): R07.89 - OTHER CHEST PAIN (2) DM type 2 (diabetes mellitus, type 2) Current Visit: No Status: Chronic Qualifiers: Diabetes mellitus snf insulin use: 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 Diabetes mellitus complication status: without complication Qualified Code(s): E11.9 - Type 2 diabetes mellitus without complications (3) GERD (gastroesophageal reflux disease) Current Visit: No Status: Chronic Code(s): K21.9 - GASTRO-ESOPHAGEAL REFLUX DISEASE WITHOUT ESOPHAGITIS Qualifiers: Esophagitis presence: esophagitis presence not specified Qualified Code(s) : K21.9 - Gastro-esophageal reflux disease without esophagitis (4) Hyperlipidemia Current Visit: No Status: Chronic Code(s): E78.5 - HYPERLIPIDEMIA, UNSPECIFIED Qualifiers: Hyperlipidemia type: other hyperlipidemia Qualified Code(s): E78.49 - Other hyperlipidemia; E78.4 - Other hyperlipidemia - Plan Patient is a 43 yo female with chest pain who is admitted for ACS rule out: #Atypical chest pain - Trop neg x 1, will trend - EKG: sinus rhythm, rate 100, no apparent ST changes - Heart score of 2 - Stress test in AM--consider cardiology consult if abnormal - Echo in AM - Risk stratification labs: HgA1c, lipid panel, TSH, Mg, Phos - Hold home Metformin & Metoprolol for cardiac stress test - Allergy to ASA, will start plavix - Nitro PRN #Epilepsy - Last keppra value in clinic low, will check level today - Patient reports change in Keppra since that time, now taking 1000 daily #GERD - Continue home PPI - Patient has had EGD with no acute findings #Hx of Afib - sinus rhythm on EKG, although patient states her Afib is intermittent - Follows with EP outpatient - Not currently on anticoagulation #MS - Patient does self cath BID, sometimes more frequently - nursing communication ordered placed to allow patient to self-cath at minimum BID Diet: NPO due to AM stress test DVT PPX: SCD's Code Status: FULL Dispo: Stable, admitted to Observation on telemetry. Plan for Echo and stress test in the AM. If abnormal results consider cardiology consult. Anticipate LOS <48 hours. FMR H&P: Upper Level - Pertinent history 43 year old female with PMH significant for seizure disorder, DM type II, HTN, gastroparesis, PTSD, MDD, pAfib, Asthma, GERD that presents with a several month history of chest pain located over left side of chest, described as sharp , stabbing pain. Patient has been seen by [facility] on several different occasions for this chest pain. She has had outpatient cardiac stress test scheduled, but life events happened and she was unable to go to those appointments. The chest pain changed over the last day, becoming more frequent and radiating to the left arm. Pain not exacerbated by movement or exertion. The pain last for short periods of time. Pain is not relieved with nitro. Patient has family history of CAD in brother who had DE in 30's. She has no known personal history of CAD. Patient does have history of pAfib but is not on anticoagulation. She states that she does see EP. She has been referred to Cardiology many times in last several months, but she has yet to receive a call to set up an appointment. Patient denies any chest pain currently. She denies associated shortness of breath. Patient endorses associated nausea without emesis. - Pertinent findings General: Alert and oriented x3. No acute distress. Resting comfortably. HEENT: MMM, EOMI Card: RRR, no appreciable murmurs Resp: CTA BL, no acute respiratory distress Abdomen: Non-tender to palpation, no distention Ext: No cyanosis or edema MSK: No tenderness to palpation over anterior chest - Plan Date/Time: 02/21/19317 IReina, have evaluated this patient and agree with findings/plan as outlined by pharmacy intern resident. Pertinent changes/additions are listed here. Atypical chest pain - Heart score of 2; low risk - Stress test in AM - Echo pending - Risk stratification labs: HgA1c, FLP, TSH, Mg, P - EKG NSR - Trend trop - Hold BB for cardiac stress test - Allergy to ASA, will start plavix - Nitro PRN Seizure disorder - Last keppra value in clinic low - Patient reports change in Keppra since that time - Will repeat Keppra level to ensure therapeutic - No seizure activity recently GERD - Continue PPI - Patient has had EGD with no acute findings Gastroparesis - Continue home medications Hx of Afib - Follows with EP - Not currently on anticoagulation - Advise patient discuss further with PCP as outpatient - NSR on EKG MS - Patient does self cath BID, will put in order for this during hospitalization Asthma - Continue home medications MDD - Continue home medications DVT PPX: SCD's Code Status: Full Dispo: Obs on tele. Anticipate LOS <48 hours. Addendum - Attending - Attending Attestation Date/Time: 02/21/19 2297 I personally evaluated the patient and discussed the management with Dr. Keenan I agree with the History, Examination, Assessment and Plan documented above with any addition or exceptions noted below - 43 yo female with h/o type 2 DM, HLD, seizure d/o, MS, MDD presented with chest pain. States that she has been having intermittent chest pain for last several months. States that pain radiates down left arm, was associated with SOB and nausea. Was scheduled to have stress but unable to make appointment due to life situation. P<H/PSH/Meds/ SH reviewed and agree with resident's documentation. Afebrile VSS. Exam repeated by me and agree with resident's findings. Labs: trop I <0.010 x3. EKG- NSR no ST changes. A/P: 1) Chest pain in patient with multiple risk factors - plan for stress test and further plans based on those results. 2) Seizure d/o - continue keppra, 3) DM- continue home meds and monitor accuchecks.
[2019-02-21 05:19] LABS: Hemoglobin A1c 6.8 % (4.0-6.0)
[2019-02-21 05:33] LABS: Cardiac Risk 3.4 (Less than 4.5); Cholesterol 149 mg/dl (< 200 Desired); HDL Cholesterol 44 mg/dL (>60 Neg Risk); LDL Cholesterol, Calculated 65 mg/dL; Magnesium 1.6 mg/dL (1.6-2.6); Phosphorus 4.5 mg/dL (2.3-4.7); Triglycerides 199 mg/dL (Less than 150)
[2019-02-21 05:38] LABS: Troponin I Less than 0.010 ng/mL (< 0.028)
[2019-02-21] MEDS ORDERED: levETIRAcetam 500 MG TAB PO SCH ×2 (09:00→21:00)
--- NOTE | 2019-02-21 09:46 | NM ---
Radionucleotide stress only myocardial perfusion scan with CT attenuation correction and SPECT imagin g HISTORY: Chest pain. FINDINGS: Homogeneous uptake of radiotracer throughout the left ventricular myocardium. Minimal breas t attenuation. No focal perfusion defect. Lexiscan protocol. QGS analysis of gated SPECT images shows no focal wall motion abnormalities. Left ventricular ejectio n fraction calculated at greater than 80%. IMPRESSION: Normal stress only myocardial perfusion exam. Normal LVEF.
[2019-02-21] MEDS: Clopidogrel Bisulfate 75 MG TAB PO SCH (12:37)
[2019-02-21] MEDS: Ivabradine 5 MG TAB PO SCH ×2 (12:41→21:20)
--- NOTE | 2019-02-21 13:50 | STRESS ---
Acquisition Time: 2019-02-21 08:32:43 Total Exercise Time: 00:01:00 Test Indications: CHEST PAIN Medications: Protocol: LEXISCAN Max HR: 099 BPM 56% of Pred: 176 BPM Max BP: 108/064 mmHG Max Work Load: 1.0 METS RESTING ECG: NORMAL SINUS RHYTHM AT 70 BPM WITH NON-SPECIFIC T-WAVE CHANGES SYMPTOMS: LIGHTHEADED NORMAL BP RESPONSE ECTOPY: NONE ECG STRESS: NO SIGNIFICANT CHANGES INTERPRETATION: AWAIT NUCLEAR IMAGES FOR DEFINITIVE DIAGNOSIS Confirmed by REGLA MONTEIRO (2), assignment desk editor DENIZ BAEZA ([id number]) on 02/21/2019 1:50:19 PM Referred By: MD Raghavendra BERG Confirmed By:REGLA MONTEIRO
[2019-02-21] MEDS ORDERED: Regadenoson 0.4 MG/5 ML SYRINGE ONE (13:54)
[2019-02-21] MEDS ORDERED: FLU VACC QS2019-20(6MOS UP)/PF 60 MCG/0.5 ML SYRINGE IM ONE (21:00)
[2019-02-21] MEDS ORDERED: Atorvastatin Calcium 40 MG TAB PO SCH (21:00)
[2019-02-21] MEDS ORDERED: DULoxetine 60 MG CAP PO SCH (21:00)
[2019-02-21] MEDS: Nitroglycerin 0.4 MG TAB (25 Tab Bottle) SL PRN ×2 (22:40→22:53)
[2019-02-22] MEDS: Nitroglycerin 0.4 MG TAB (25 Tab Bottle) SL PRN (00:52)
[2019-02-22] MEDS ORDERED: Acetaminophen 325 MG TAB PO PRN (01:10)
[2019-02-22] MEDS ORDERED: Simethicone Chewable 80 MG TAB PO SCH (01:30)
[2019-02-22] MEDS ORDERED: Lidocaine 2% Viscous Solution 20 ML, Aluminum & Magnesium Hydroxide 30 ML, Donnatal Eli... SSW SCH (01:45)
--- NOTE | 2019-02-22 06:02 | PDOC.EVN ---
Event Note - Event Note Event Note: 2244: Notified by RN that patient having chest pain described as sharp and stabbing, located over left upper chest and radiating down left arm. Pain rated 6/10. Noted to have questionable ST depression on telemetry monitoring. Stat EKG was performed. Compared to EKG performed on 02/20/19, 2129. This new EKG showed more prominent T wave inversions in leads V1, V2, V3. Patient was given Nitro x 2 doses and pain resolved. Troponin ordered and resulted negative. Patient's stress test part 1 report reviewed from earlier in day and results were normal. 99: Notified by RN that patient having chest pain again, similar in character as above but now additionally radiating to back and some epigastric pain. Another nitro dose given did not relieve pain. Stat EKG repeated again with results showing no changes compared to 2244 EKG. Upon examining patient she describes sharp pain over left chest and into back and left shoulder. Rates pain 5/10. On exam denies TTP over chest wall and left shoulder. Is mildly TTP over abdomen. No masses or pulsation noted on deep palpation of abdomen. Heart rate 60-70, no murmurs noted. Denies SOB, palpitations, headache, dizziness. Patient last ate a few hours ago. Plan to order Simethicone and GI cocktail to see if provide relief, given patient has hx of chronic GERD. Will closely monitor. 0545: Called patient's RN. She states that upon going to give patient Simethicone and GI cocktail that patient refused these medications due to chest pain self-resolving (around 0115). No further episodes of chest pain overnight. Patient is due for part 2 of her stress test this morning.
--- NOTE | 2019-02-22 06:15 | PDOC.FM ---
- Subjective Subjective: Overnight patient had 2 episodes of chest pain (see event note for details). patient had no other recurrence of pain. Pain self resolved. This morning, patient is resting comfortably in bed. States no recurrence of pain since last night. No current chest pain or SOB. Denied any fever/chills, NVD. Patient states she is ready to do day 2 of her stress test. - Objective MAR Reviewed: Yes Vital Signs & Weight: Vital Signs (12 hours) Temp Pulse Resp BP BP Pulse Ox 02/22/19 03:55 97.5 F L 72 17 98/55 L 98 02/22/19 00:56 73 28 H 105/57 L 95 02/22/19 00:47 74 28 H 113/61 97 02/21/19 23:08 69 16 100/62 95 02/21/19 22:51 69 16 103/61 02/21/19 22:36 78 20 115/64 95 02/21/19 19:05 98.1 F 63 18 104/62 96 Weight Weight 79.968 kg I&O: 02/20/19 02/21/19 02/22/19 06:59 06:59 06:59 Intake Total 480 Output Total 400 Balance 80 Result Diagrams: 02/20/19 22:43 02/20/19 22:43 Phys Exam - Physical Examination Constitutional: NAD HEENT: PERRLA, moist MMs, sclera anicteric Neck: supple, full ROM Respiratory: clear to auscultation bilateral Cardiovascular: RRR, no significant murmur, no rub Gastrointestinal: soft, non-tender, no distention, positive bowel sounds Musculoskeletal: no edema, pulses present Neurological: non-focal, moves all 4 limbs Psychiatric: normal affect, A&O x 3 Skin: no rash, normal turgor, cap refill <2 seconds Dx/Plan (1) Atypical chest pain Code(s): R07.89 - OTHER CHEST PAIN Status: Acute (2) Asthma Code(s): J45.909 - UNSPECIFIED ASTHMA, UNCOMPLICATED Status: Chronic (3) DM type 2 (diabetes mellitus, type 2) Status: Chronic Qualifiers: Diabetes mellitus detention insulin use: without terminal worker use Diabetes mellitus complication status: without complication Qualified Code(s): E11.9 - Type 2 diabetes mellitus without complications (4) Depression Code(s): F32.9 - MAJOR DEPRESSIVE DISORDER, SINGLE EPISODE, UNSPECIFIED Status : Chronic (5) GERD (gastroesophageal reflux disease) Code(s): K21.9 - GASTRO-ESOPHAGEAL REFLUX DISEASE WITHOUT ESOPHAGITIS Status: Chronic Qualifiers: Esophagitis presence: esophagitis presence not specified Qualified Code(s) : K21.9 - Gastro-esophageal reflux disease without esophagitis (6) Hyperlipidemia Code(s): E78.5 - HYPERLIPIDEMIA, UNSPECIFIED Status: Chronic Qualifiers: Hyperlipidemia type: other hyperlipidemia Qualified Code(s): E78.49 - Other hyperlipidemia; E78.4 - Other hyperlipidemia (7) Multiple sclerosis Code(s): G35 - MULTIPLE SCLEROSIS Status: Chronic (8) Seizure disorder Code(s): G40.909 - EPILEPSY, UNSP, NOT INTRACTABLE, WITHOUT STATUS EPILEPTICUS Status: Chronic - Plan Plan: Patient is a 43 yo female with chest pain who is admitted for ACS rule out: #Atypical chest pain Trop neg x 3. Repeat Troponins with recurrence of chest pain, negative. EKG: sinus rhythm, rate 100, no apparent ST changes. Heart score of 2 - Day 1 of Stress test normal - normal EF - Echo: 50-55%, mild MR/TR - HgA1c: 6.8 (at goal), elevated TG - patient on statin - Hold home Metformin & Metoprolol for cardiac stress test, will resume after. - Allergy to ASA, advised plavix - patient refused. Discussed risks/benefits with patient. - Nitro PRN #Epilepsy - Keppra level 22 - at goal; continue home dose of 1000 daily #GERD - Continue PPI, will change to once daily instead of BID - Patient has had EGD with no acute findings #Hx of Afib - sinus rhythm on EKG, although patient states her Afib is intermittent - Follows with EP outpatient - Not currently on anticoagulation - Will continue to monitor #MS - Patient does self cath BID, sometimes more frequently - nursing communication ordered placed to allow patient to self-cath at minimum BID as well as PRN cath Diet: NPO due to AM stress test DVT PPX: SCD's Code Status: FULL Dispo: Stable; Day 2 stress test in the AM. If abnormal results consider cardiology consult. If normal will discharge and plan for outpatient follow up. Anticipate LOS <48 hours. Addendum - Attending - Attending Attestation Date/Time: 02/22/19 1108 I personally evaluated the patient and discussed the management with Dr. Keenan I agree with the History, Examination, Assessment and Plan documented above with any addition or exceptions noted below - Patient without complaints. Had some chest pain overnight. Stable EKG. Afebrile VSS. A/P: 1) Chest pain- troponins negative; Stress test- no focal perfusion defects; normal EF. Echo- normal. Plan to d/c home today. Possible GI etiology for pain. 2) DM - well controlled; continue current meds. D/c home today and f/u at [facility] in 2-3 weeks.
[2019-02-22 08:18] VITALS: BP 93/53; TEMP 97.6
[2019-02-22] MEDS: Ivabradine 5 MG TAB PO SCH (09:06)
[2019-02-22] MEDS: Clopidogrel Bisulfate 75 MG TAB PO SCH (09:06)
--- NOTE | 2019-02-22 18:31 | EKG ---
Test Reason : Blood Pressure : / mmHG Vent. Rate : 095 BPM Atrial Rate : 095 BPM P-R Int : 122 ms QRS Dur : 084 ms QT Int : 352 ms P-R-T Axes : 053 026 154 degrees QTc Int : 442 ms Normal sinus rhythm Abnormal ECG Confirmed by DR. James SABILLON MD ([id number]) on 02/22/2019 6:30:44 PM Referred By: Confirmed By:DR. James SABILLON MD
--- NOTE | 2019-02-23 02:26 | DIS ---
DATE OF ADMISSION: 02/21/2019 DATE OF DISCHARGE: 02/22/2019 RESIDENT: Nereida Keenan MD ADMITTING ATTENDING: Roge Proctor MD. DISCHARGE ATTENDING: ASHISH IRBY MD CONSULTS: None. PROCEDURES: Stress test and echo. DISCHARGE MEDICATIONS: 1. Protonix 40 mg oral daily. 2. Linzess 290 mcg oral daily before food. 3. ProAir 2 puffs inhalation every 6 hours as needed. 4. Metformin 1000 mg oral twice daily with meals. 5. Duloxetine 120 mg oral at bedtime. 6. Lipitor 80 mg oral at bedtime. 7. Metoprolol succinate 50 mg oral daily. 8. Corlanor 5 mg oral twice daily. 9. Keppra 1000 mg oral daily. DISCONTINUED MEDICATIONS: Pantoprazole 40 mg oral twice daily. PRIMARY DIAGNOSIS: Atypical chest pain. SECONDARY DIAGNOSES: 1. Epilepsy. 2. Gastroesophageal reflux disease. 3. History of atrial fibrillation. 4. Multiple sclerosis. HISTORY OF PRESENT ILLNESS/HOSPITAL COURSE: This is a 43-year-old female who presented to the emergency department with a chief complaint of chest pain. She stated that it was left-sided, described as a dull that occurred intermittently over the past several weeks. She decided to come to the ER as the pain became more frequent and was lasting longer. She characterized the pain as sharp and stabbing as well as a tightness sensation. The patient said there was no difference with exertion. The pain radiated to her left shoulder and down her left arm. The pain is associated with nausea and headache. Nitroglycerin did not relieve her chest pain in the ER. The patient says at that time that she was trying to get a stress test scheduled outpatient, but she had been unable to do so. In the ER, the patient received nitroglycerin as well as Plavix. The patient's chest x-ray was negative for any acute pathology. The patient had a troponin negative x3. The patient had no EKG changes. She was admitted to the telemetry floor for ACS rule out. The patient had a normal stress test that was performed. She also had an echo performed that showed an ejection fraction of 50% to 55%, mild mitral regurgitation, as well as mild tricuspid regurgitation. The patient's chest pain is likely due to her GERD issues or MSK related. She may benefit from a GI referral outpatient. The patient's other chronic conditions remained stable throughout her stay. We did get a Keppra level while she was here that showed she was within therapeutic range. DISPOSITION: Stable. DISCHARGE INSTRUCTIONS: 1. Location: Home. 2. Diet: Heart healthy and carb consistent. 3. Activity: Ad jay. 4. Follow up with PCP within 7 days. Job ID: [id number] MTDD
--- NOTE | 2019-02-24 23:05 | EKG ---
Test Reason : Blood Pressure : / mmHG Vent. Rate : 079 BPM Atrial Rate : 079 BPM P-R Int : 122 ms QRS Dur : 080 ms QT Int : 384 ms P-R-T Axes : 054 025 096 degrees QTc Int : 440 ms Normal sinus rhythm Abnormal ECG When compared with ECG of 08-DEC-2018 18:34, T wave inversion more evident in Anterior leads Confirmed by Herman TELLEZ ([id number]) on 02/24/2019 11:04:35 PM Referred By: SHANDA Confirmed By:Herman TELLEZ
--- NOTE | 2019-02-24 23:05 | EKG ---
Test Reason : Blood Pressure : / mmHG Vent. Rate : 069 BPM Atrial Rate : 069 BPM P-R Int : 128 ms QRS Dur : 084 ms QT Int : 416 ms P-R-T Axes : 052 023 079 degrees QTc Int : 445 ms Normal sinus rhythm Abnormal ECG When compared with ECG of 21-FEB-2019 22:45, (Unconfirmed) No significant change was found Confirmed by Herman TELLEZ ([id number]) on 02/24/2019 11:05:26 PM Referred By: Confirmed By:Herman TELLEZ
== END 2019-02-22 11:01 | disposition home or self-care (01) ==
LOC: ERS 21:30 → 2SW 02-21 01:25
PROVIDERS: ADMIT Family Medicine; ATTEND Family Medicine
DX: R07.89 Other chest pain (principal); G40.909 Epilepsy, unspecified, not intractable, without status epilepticus; K21.9 Gastro-esophageal reflux disease without esophagitis; G35 Multiple sclerosis; I48.91 Unspecified atrial fibrillation; J45.909 Unspecified asthma, uncomplicated; E11.9 Type 2 diabetes mellitus without complications; I08.1 Rheumatic disorders of both mitral and tricuspid valves; K31.84 Gastroparesis; F32.9 Major depressive disorder, single episode, unspecified; F60.3 Borderline personality disorder; K58.9 Irritable bowel syndrome, unspecified; Z79.84 Long term (current) use of oral hypoglycemic drugs; Z79.899 Other long term (current) drug therapy; Z88.0 Allergy status to penicillin; Z88.5 Allergy status to narcotic agent; Z88.8 Allergy status to other drugs, medicaments and biological substances; Z91.011 Allergy to milk products; Z91.048 Other nonmedicinal substance allergy status; Z87.891 Personal history of nicotine dependence
CPT/HCPCS: 36415; 71045; 78452; 80053; 80061; 80177; 83036; 83690; 83735; 84100; 84443; 84484; 85025; 90471; 90686; 93005; 93010; 93017; 93306; A9500; G0008; G0378; J2785

== ENCOUNTER 2019-05-09 15:00 | Emergency (ER) | payer OTHER ==
[2019-05-09 17:49] LABS: Glucose Accucheck Confirmation 128 mg/dl (70-105)
--- NOTE | 2019-05-09 18:26 | ULT ---
EXAM: Right lower extremity venous Doppler HISTORY: Right clarke pain for one day. FINDINGS: Grayscale, color-flow, Doppler evaluation, spectral analysis of the right lower extremity venous stru ctures is performed with 2-D imaging. The right common femoral, superficial femoral, popliteal, posterior tibial, proximal greater saphenous and profunda femoral veins are imaged. There is normal lumen compressibility, flow, and augmentation in the visualized deep venous structure s of the right lower extremity. Limited focused ultrasound was also obtained in the region of the patient's pain, and no cystic or so lid lesion is seen in this region. IMPRESSION: No evidence of a deep vein thrombosis in the visualized deep venous structures right lower extremity.
[2019-05-09 18:39] LABS: #Basophils 0.1 thou/uL (0.0-0.2); #Eosinphils 0.2 thou/uL (0.0-0.7); #Monocytes 0.6 thou/uL (0.11-0.59); #Neutrophils 6.2 thou/uL (1.40-6.50); %Basophils 0.7 % (0.0-1.0); %Eosinophils 1.9 % (0.0-10.0); %Lymphocytes 21.8 % (21.0-51.0); %Monocytes 6.2 % (0.0-10.0); %Neutrophils 69.4 % (42.0-75.0); Hemoglobin 13.8 g/dL (12.0-16.0); Mean Corpuscular HGB CONC 34.3 g/dL (32.0-36.0); Mean Corpuscular Hemoglobin 32.6 pg (27.0-31.0); Mean Corpuscular Volume 94.9 fL (78.0-98.0); Mean Platelet Volume 7.2 fL (7.4-10.4); Platelet Count 309 thou/uL (130-400); RBC Distribution Width 11.7 % (11.5-14.5); Red Blood Cell (RBC) Count 4.25 mill/uL (4.20-5.40)
[2019-05-09 18:57] LABS: Anion Gap 18 mmol/L (10-20); BUN (Urea Nitrogen) 8 mg/dL (7.0-18.7); Calc. Creatinine Clearance 0 mL/min (70-130); Calcium 9.7 mg/dL (7.8-10.44); Carbon Dioxide 22 mmol/L (22-29); Chloride 101 mmol/L (98-107); Estimated GFR-MDRD Greater than 90; Glucose 127 mg/dL (70-105); Potassium 3.6 mmol/L (3.5-5.1); Sodium 137 mmol/L (136-145)
== END 2019-05-09 19:25 | disposition home or self-care (01) ==
LOC: ERS 15:00
DX: M79.604 Pain in right leg (principal); E78.5 Hyperlipidemia, unspecified; E11.9 Type 2 diabetes mellitus without complications; K21.9 Gastro-esophageal reflux disease without esophagitis; G40.909 Epilepsy, unspecified, not intractable, without status epilepticus; G43.909 Migraine, unspecified, not intractable, without status migrainosus; G47.30 Sleep apnea, unspecified; F43.10 Post-traumatic stress disorder, unspecified; Z79.84 Long term (current) use of oral hypoglycemic drugs; Z79.899 Other long term (current) drug therapy
CPT/HCPCS: 36415; 80048; 82947; 85025

== ENCOUNTER 2019-07-06 13:22 | Outpatient (CLI) | payer OTHER ==
--- NOTE | 2019-07-06 14:24 | MMO ---
Bilateral MAMMO Bilat Diag DDI+GABBI. CLINICAL HISTORY: Patient is 44 years old and is seen for diagnostic exam and pain in the left breast. The patient has the following family history of breast cancer: mother and maternal grandmother. The patient has no personal history of cancer. VIEWS: The views performed were: bilateral craniocaudal with tomosynthesis; bilateral mediolateral oblique with tomosynthesis; and bilateral mediolateral with tomosynthesis. FILMS COMPARED: The present examination has been compared to prior imaging studies performed at [facility] on 08/08/2018, and at [facility] on 11/15/2010 and 07/06/2019. This study has been interpreted with the assistance of computer-aided detection. MAMMOGRAM FINDINGS: The breasts are almost entirely fat. There are no suspicious masses, suspicious calcifications, or new areas of architectural distortion. There are no mammographic or sonographic abnormalities to explain the patient's breast pain. The patient is referred back to her clinician. Negative imaging findings should not preclude biopsy if clinical findings are suspicious. IMPRESSION: THERE IS NO MAMMOGRAPHIC EVIDENCE OF MALIGNANCY. A ROUTINE FOLLOW-UP MAMMOGRAM IN 1 YEAR IS RECOMMENDED. THE RESULTS OF THIS EXAM WERE SENT TO THE PATIENT. ACR BI-RADS Category 1 - Negative MAMMOGRAPHY NOTE: 1. A negative mammogram report should not delay a biopsy if a dominant of clinically suspicious mass is present. 2. Approximately 10% to 15% of breast cancers are not detected by mammography. 3. Adenosis and dense breasts may obscure an underlying neoplasm. Reported by: XANDER MARTINEZ MD Electonically Signed: [id number]
--- NOTE | 2019-07-06 14:43 | ULT ---
LIMITED LEFT BREAST ULTRASOUND: 07/06/19 PROVIDED CLINICAL HISTORY: Left breast pain. FINDINGS: Limited sonographic interrogation is performed of the left chest in the region of palpable concern. T he sonographic appearance of the breast tissue in this region is normal. IMPRESSION: BIRADS 1: Negative Routine annual screening mammography (for women over age 40) Negative imaging findings should not preclude further evaluation of a clinically suspicious abnormali ty. Patient is referred back to her clinician. POS: OFF
== END 2019-07-06 13:23 | disposition home or self-care (01) ==
LOC: BICMAMMO 13:22
PROVIDERS: ATTEND Obstetrics & Gynecology
DX: N64.4 Mastodynia (principal)
CPT/HCPCS: 77066; G0279

== ENCOUNTER 2019-10-25 09:32 | Outpatient (CLI) | payer OTHER ==
--- NOTE | 2019-10-25 14:00 | ULT ---
RENAL ULTRASOUND: INDICATION: History of a neurogenic bladder. COMPARISON: Prior study dated 05/03/2018. FINDINGS: The right kidney measured 11.5 x 5.1 x 6.2 cm. The left kidney measured 11.3 x 6.0 x 6.5 cm. Prevoi d bladder volume was 84.6 cc. IMPRESSION: 1. No focal renal lesion or hydronephrosis. 2. Prevoid bladder volume of 84.6 cc. POS: BH
--- NOTE | 2019-10-25 14:17 | ULT ---
HEPATIC DUPLEX ULTRASOUND: INDICATION: Elevated LFTs. COMPARISON: None. TECHNIQUE: Vance scale, color Doppler, and spectral Doppler images were obtained of the upper abdomen utilizing h epatic Doppler protocol. FINDINGS: There is diffuse fatty infiltration of the liver. Gallbladder is surgically absent. Common bile duct measured 5.2 mm. Visualized aspects of the aorta, IVC and pancreas were within normal limits. Hepatopetal flow is demonstrated within the hepatic vasculature. The spleen measured 11.8 cm in length and demonstrated appropriate flow within the splenic artery and splenic vein. No free fluid is evident. IMPRESSION: 1. Fatty infiltration of the liver. 2. Appropriate hepatopetal flow within the hepatic vasculature. POS: BH
== END 2019-10-25 09:33 | disposition home or self-care (01) ==
LOC: BICULT 09:32
PROVIDERS: ATTEND Urology
DX: N39.46 Mixed incontinence (principal); R94.5 Abnormal results of liver function studies; K76.0 Fatty (change of) liver, not elsewhere classified
CPT/HCPCS: 36415; 76705; 76770; 80053; 80074; 82103; 82104; 82390; 82728; 83516; 83540; 83550; 85025; 86038; 86225; 86706; 86708

== ENCOUNTER 2019-11-02 15:06 | Emergency (ER) | payer OTHER ==
[2019-11-02] MEDS ORDERED: Ondansetron PF 4 MG/2 ML Vial ONE (15:34)
[2019-11-02] MEDS ORDERED: Morphine 4 MG/ML VIAL ONE ×2 (15:34→18:14)
--- NOTE | 2019-11-02 15:43 | RAD ---
PORTABLE CHEST 1 VIEW: DATE: 11/02/2019. TIME: 3:41 PM. HISTORY: Chest pain. COMPARISON: 02/20/2019. FINDINGS: The heart size is normal. No focal areas of consolidation, pneumothoraces, or pleural effusions are seen. A loop recorder device is seen in the left chest. IMPRESSION: No acute process. POS: [facility]
[2019-11-02 16:46] LABS: ALT (SGPT) 64 U/L (8-55); AST (SGOT) 78 U/L (5-34); Albumin 4.2 g/dL (3.5-5.0); Alkaline Phosphatase 101 U/L (40-110); Anion Gap 17 mmol/L (10-20); BUN (Urea Nitrogen) 14 mg/dL (7.0-18.7); Bilirubin, Total 0.4 mg/dL (0.2-1.2); Calc. Creatinine Clearance 0 mL/min (70-130); Calcium 9.2 mg/dL (7.8-10.44); Carbon Dioxide 23 mmol/L (22-29); Chloride 103 mmol/L (98-107); Estimated GFR-MDRD 82; Globulin 3.5 g/dL (2.4-3.5); Glucose 128 mg/dL (70-105); Lipase 15 U/L (8-78); Potassium 3.9 mmol/L (3.5-5.1); Protein, Total 7.7 g/dL (6.0-8.3); Sodium 139 mmol/L (136-145)
[2019-11-02 17:13] LABS: #Basophils 0.1 thou/uL (0.0-0.2); #Eosinphils 0.3 thou/uL (0.0-0.7); #Lymphocytes 1.9 thou/uL (1.20-3.40); #Monocytes 0.7 thou/uL (0.11-0.59); #Neutrophils 5.1 thou/uL (1.40-6.50); %Basophils 1.3 % (0.0-1.0); %Eosinophils 3.3 % (0.0-10.0); %Lymphocytes 23.8 % (21.0-51.0); %Monocytes 8.1 % (0.0-10.0); %Neutrophils 63.5 % (42.0-75.0); Hemoglobin 14.1 g/dL (12.0-16.0); Mean Corpuscular HGB CONC 35.3 g/dL (32.0-36.0); Mean Corpuscular Hemoglobin 33.7 pg (27.0-31.0); Mean Corpuscular Volume 95.4 fL (78.0-98.0); Mean Platelet Volume 7.7 fL (7.4-10.4); Platelet Count 296 thou/uL (130-400); RBC Distribution Width 11.3 % (11.5-14.5); Red Blood Cell (RBC) Count 4.18 mill/uL (4.20-5.40)
== END 2019-11-02 22:19 | disposition home or self-care (01) ==
LOC: ERS 15:06
DX: M79.602 Pain in left arm (principal); R68.84 Jaw pain; I49.9 Cardiac arrhythmia, unspecified; E78.5 Hyperlipidemia, unspecified; E11.9 Type 2 diabetes mellitus without complications; K21.9 Gastro-esophageal reflux disease without esophagitis; G40.909 Epilepsy, unspecified, not intractable, without status epilepticus; G43.909 Migraine, unspecified, not intractable, without status migrainosus; J45.909 Unspecified asthma, uncomplicated; G47.30 Sleep apnea, unspecified; F41.9 Anxiety disorder, unspecified; F43.10 Post-traumatic stress disorder, unspecified; Z79.899 Other long term (current) drug therapy
CPT/HCPCS: 36415; 71045; 80053; 83690; 84484; 85025; 93005; 96374; 96375; 96376; J2270; J2405

== ENCOUNTER 2020-07-25 11:44 | Outpatient (CLI) | payer OTHER | END 2020-07-25 11:45 | disposition home or self-care (01) | LOC: BICMAMMO 11:44 | PROVIDERS: ATTEND Obstetrics & Gynecology | DX: Z12.31 Encounter for screening mammogram for malignant neoplasm of breast (principal); Z80.3 Family history of malignant neoplasm of breast | CPT/HCPCS: 77067 ==

== ENCOUNTER 2020-11-06 08:50 | Outpatient (CLI) | payer OTHER | END 2020-11-06 08:51 | disposition home or self-care (01) | LOC: BICMAMMO 08:50 | PROVIDERS: ATTEND Obstetrics & Gynecology | DX: R22.2 Localized swelling, mass and lump, trunk (principal) | CPT/HCPCS: G0279 ==

== ENCOUNTER 2021-02-22 06:49 | Outpatient (CLI) | payer OTHER | END 2021-02-22 06:50 | disposition home or self-care (01) | LOC: BICMRI 06:49 | PROVIDERS: ATTEND Podiatrist Foot & Ankle Surgery | DX: M25.372 Other instability, left ankle (principal); Z98.890 Other specified postprocedural states ==

== ENCOUNTER 2022-05-19 12:16 | Outpatient (CLI) | payer OTHER | END 2022-05-19 12:17 | disposition home or self-care (01) | LOC: SCSRAD 12:16 | PROVIDERS: ATTEND Nurse Practitioner Family | DX: R06.02 Shortness of breath (principal) | CPT/HCPCS: 71046 ==

== ENCOUNTER 2023-01-23 12:49 | Outpatient (CLI) | payer OTHER | END 2023-01-23 12:50 | disposition home or self-care (01) | LOC: SCSMRI 12:49 | PROVIDERS: ATTEND Student in an Organized Health Care Education/Training Program | DX: M67.88 Other specified disorders of synovium and tendon, other site (principal) ==

== ENCOUNTER 2024-02-10 08:20 | Outpatient (CLI) | payer OTHER | END 2024-02-10 08:21 | disposition home or self-care (01) | LOC: SCSMRI 08:20 | PROVIDERS: ATTEND Neuromusculoskeletal Medicine & OMM | DX: G35 Multiple sclerosis (principal); R90.82 White matter disease, unspecified | CPT/HCPCS: 36415; 70553; 76376; 82565 ==

== ENCOUNTER 2024-12-19 17:02 | Emergency (ER) | payer MEDICAID ==
[2024-12-19] MEDS ORDERED: levETIRAcetam 500 MG (5 mL) VIAL ONE (17:28)
[2024-12-19 17:35] LABS: #Basophils 0.06 10x3/uL (0.0-0.2); #Eosinophils 0.24 10x3/uL (0.0-0.7); #Monocytes 0.53 10x3/uL (0.11-0.59); #Neutrophils 6.40 10x3/uL (1.40-6.50); %Basophils 0.6 % (0.0-1.0); %Eosinophils 2.5 % (0.0-10.0); %Lymphocytes 24.3 % (21.0-51.0); %Monocytes 5.5 % (0.0-10.0); %Neutrophils 66.7 % (42.0-75.0); Hematocrit 37.2 % (36.0-47.0); Hemoglobin 13.0 g/dL (12.0-16.0); Mean Corpuscular Hemoglobin 31.5 pg (27.0-31.0); Mean Corpuscular Volume 90.1 fL (78.0-98.0); Platelet Count 382 10x3/uL (130-400); Red Blood Cell (RBC) Count 4.13 mill/uL (4.20-5.40); White Blood Cell (WBC) Count 9.60 10x3/uL (4.8-10.8)
[2024-12-19 17:49] LABS: ALT (SGPT) 11 U/L (Less than 34); AST (SGOT) 15 U/L (11-34); Albumin 4.7 g/dL (3.1-4.5); Alkaline Phosphatase 96 U/L (40-110); Anion Gap 16 mmol/L (10-20); BUN (Urea Nitrogen) 6 mg/dL (7.0-18.7); Bilirubin, Total 0.5 mg/dL (0.3-1.2); CK (CPK) 74 U/L (29-168); Calc. Creatinine Clearance 0 mL/min (70-130); Calcium 9.6 mg/dL (7.8-10.44); Carbon Dioxide 25 mmol/L (22-29); Chloride 99 mmol/L (98-107); Globulin 3.1 g/dL (2.4-3.5); Glucose 92 mg/dL (70-105); Potassium 4.5 mmol/L (3.5-5.1); Sodium 135 mmol/L (136-145)
[2024-12-19 17:51] LABS: Acetaminophen Less than 10 mcg/mL (Less than 10); Salicylate Less than 8.0 mg/dL (Less than 8.0); Troponin I Less than 0.010 ng/mL (< 0.028)
[2024-12-19 20:51] LABS: CAUTI Indications for Culture Alt mental st,lethar; Glucose, Urine (Dipstick) Normal (Negative); Leukocyte 75 Leu/uL (Negative); Protein, Urine (Dipstick) Negative (Neg-Trace); Specific Gravity, Urine 1.008 (1.002-1.036)
[2024-12-19 20:52] LABS: Bacteria/HPF 1+ HPF (None Seen)
[2024-12-19 20:53] LABS: Urine Culture Reflex Yes Yes
[2024-12-19 21:06] LABS: Cocaine Metabolite Screen Negative (Negative); THC/Cannabinoid Screen Negative (Negative); Tricyclic Screen Negative (Negative)
== END 2024-12-19 21:13 | disposition home or self-care (01) ==
LOC: ERS 17:02
DX: R56.9 Unspecified convulsions (principal); N39.0 Urinary tract infection, site not specified; E11.9 Type 2 diabetes mellitus without complications
CPT/HCPCS: 36415; 71045; 80053; 80306; 80307; 81001; 82550; 83605; 84484; 85025; 87077; 87086; 87186; 95813; 96365; 96375; C9254; J1953

== ENCOUNTER 2025-03-13 05:42 | Day surgery (SDC) | payer MEDICAID ==
[2025-03-09 14:56] VITALS: BMI 27.9
[2025-03-13] MEDS ORDERED: PROPOFOL 20 ML ONE (07:36)
[2025-03-13] MEDS ORDERED: Lidocaine 1% PF 5 ML VIAL ONE (07:36)
== END 2025-03-13 09:05 | disposition home or self-care (01) ==
LOC: SDC 05:42
PROVIDERS: ATTEND Internal Medicine Gastroenterology
PROC: 0D758ZZ Dilation of Esophagus, Via Natural or Artificial Opening Endoscopic (ICD-10-PCS; principal; 2025-03-13)
PROC: 0DB58ZX Excision of Esophagus, Via Natural or Artificial Opening Endoscopic, Diagnostic (ICD-10-PCS; principal; 2025-03-13)
DX: K21.00 Gastro-esophageal reflux disease with esophagitis, without bleeding (principal); E11.40 Type 2 diabetes mellitus with diabetic neuropathy, unspecified; Z90.49 Acquired absence of other specified parts of digestive tract; Z90.710 Acquired absence of both cervix and uterus; Z98.890 Other specified postprocedural states; Z88.0 Allergy status to penicillin; Z88.1 Allergy status to other antibiotic agents; Z88.5 Allergy status to narcotic agent; Z88.8 Allergy status to other drugs, medicaments and biological substances; Z88.6 Allergy status to analgesic agent; Z91.0110 Allergy to milk products, unspecified; Z79.84 Long term (current) use of oral hypoglycemic drugs; Z79.85 Long-term (current) use of injectable non-insulin antidiabetic drugs; Z87.891 Personal history of nicotine dependence
CPT/HCPCS: 88305; J2250; J2704